=== PATIENT | male | born 1955 | race Hispanic/Latino ===

== ENCOUNTER 2018-06-23 08:16 | Inpatient (IN) | payer MEDICARE ==
[~2018-06-23] VITALS: Ht 177.8 cm; Wt 99.8 kg
--- OUTSIDE RECORDS SUMMARY | 2018-06-23 08:19 | XMS REPORT ---
Author Author [facility] Address Unknown Phone Unavailable Care Team Providers Care [employer] Import Representative Name Role Phone Unavailable Unavailable Problems This patient has no known problems. Allergies, Adverse Reactions, Alerts This patient has no known allergies or adverse reactions. Medications This patient has no known medications. Encounters Start Date/Time End Date/Time Encounter Type Admission Type Attending [facility] Facility Care Department Encounter ID 2018-08-05 00:00:00 2018-08-05 00:00:00 Outpatient [facility] [id number] 2018-06-07 00:00:00 2018-06-07 00:00:00 Outpatient [facility] [id number] 2018-05-27 00:00:00 2018-05-27 00:00:00 Outpatient [facility] [id number] 2018-05-06 00:00:00 2018-05-06 00:00:00 Outpatient [facility] [id number] 2018-04-29 10:15:40 2018-04-29 10:15:40 Outpatient [facility] [id number] 2018-04-26 13:45:33 2018-04-26 13:45:33 Outpatient [facility] [id number] 2018-04-05 11:55:07 2018-04-05 11:55:07 Outpatient [facility] [id number] 2018-04-05 11:15:06 2018-04-05 11:15:06 Outpatient [facility] [id number] 2018-03-26 14:31:44 2018-03-26 14:31:44 Outpatient [facility] [id number] 2018-03-26 13:37:27 2018-03-26 13:37:27 Outpatient [facility] [id number] 2018-03-25 13:28:59 2018-03-25 13:28:59 Outpatient [facility] [id number] 2018-02-09 00:00:00 2018-02-09 00:00:00 Outpatient [facility] [id number] 2018-02-08 00:00:00 2018-02-08 00:00:00 Outpatient [facility] [id number] 2018-02-08 00:00:00 2018-02-08 00:00:00 Outpatient [facility] [id number] 2018-02-08 00:00:00 2018-02-08 00:00:00 Outpatient [facility] [id number] 2018-02-04 08:25:01 2018-02-04 08:25:01 Outpatient [facility] [id number] 2018-02-04 07:35:32 2018-02-04 07:35:32 Outpatient [facility] [id number] 2018-02-03 00:00:00 2018-02-03 00:00:00 Outpatient [facility] [id number] 2018-01-18 14:05:48 2018-01-18 14:05:48 Outpatient [facility] [id number] 2018-01-18 00:00:00 2018-01-18 00:00:00 Outpatient [facility] [id number] 2018-01-07 09:47:52 2018-01-07 09:47:52 Emergency [facility] [id number] 2018-01-07 09:43:53 2018-01-07 09:43:53 Inpatient [facility] [id number] 2018-01-07 08:37:06 2018-01-07 08:37:06 Outpatient [facility] [id number] 2017-12-28 08:30:45 2017-12-28 08:30:45 Outpatient [facility] [id number] 2017-10-20 00:00:00 2017-10-20 00:00:00 Outpatient [facility] [id number] 2017-09-10 09:15:05 2017-09-10 09:15:05 Outpatient [facility] [id number] 2017-09-10 09:02:42 2017-09-10 09:02:42 Outpatient [facility] [id number] 2017-07-30 00:00:00 2017-07-30 00:00:00 Outpatient [facility] [id number] 2017-07-23 08:54:49 2017-07-23 08:54:49 Outpatient [facility] [id number] 2017-06-11 10:37:22 2017-06-11 10:37:22 Outpatient [facility] [id number] 2017-06-11 09:35:41 2017-06-11 09:35:41 Outpatient [facility] [id number] 2017-06-02 09:52:05 2017-06-02 09:52:05 Outpatient [facility] [id number] 2017-05-13 08:56:56 2017-05-13 08:56:56 Outpatient [facility] [id number] 2017-04-22 00:00:00 2017-04-22 00:00:00 Outpatient [facility] [id number] 2017-03-25 11:17:56 2017-03-25 11:17:56 Outpatient [facility] [id number] 2017-03-10 15:11:08 2017-03-10 15:11:08 Outpatient [facility] [id number] 2017-03-10 14:08:11 2017-03-10 14:08:11 Outpatient [facility] [id number] 2017-03-06 11:39:08 2017-03-06 11:39:08 Outpatient [facility] [id number] 2017-03-05 00:00:00 2017-03-05 00:00:00 Outpatient [facility] [id number] 2017-02-25 00:00:00 2017-02-25 00:00:00 Outpatient [facility] [id number] 2017-02-19 05:31:23 2017-02-19 05:31:23 Outpatient [facility] [id number] 2017-02-19 15:54:12 2017-02-19 00:00:00 Inpatient [facility] [id number] 2017-02-17 23:01:27 2017-02-17 23:01:27 Outpatient [facility] [id number] 2017-02-17 12:57:46 2017-02-17 12:57:46 Emergency [facility] [id number] 2017-02-17 08:39:26 2017-02-17 08:39:26 Emergency [facility] [id number] 2017-02-17 08:20:28 2017-02-17 08:20:28 Inpatient [facility] [id number]
[2018-06-23 08:46] LABS: CLARITY,URINE CLEAR (CLEAR); COLOR,URINE AMBER (YELLOW)
[2018-06-23 08:50] LABS: BILIRUBIN,URINE 2+ (NEGATIVE); KETONES,URINE NEGATIVE (NEGATIVE); LEUKOCYTE ESTERASE ,URINE NEGATIVE (NEGATIVE); NITRITE,URINE NEGATIVE (NEGATIVE); PROTEIN,URINE DIPSTICK TRACE (NEGATIVE); URINE UROBILINOGEN 1 mg/dL (0.2 - 1)
[2018-06-23 09:01] LABS: EPITHELIAL CELLS,URINE RARE /LPF
[2018-06-23 09:02] LABS: CALCIUM OXALATE CRYSTALS,UR MODERATE (FEW)
[2018-06-23] MEDS ORDERED: ONDANSETRON HCL INJ 2MG/ML 2ML 2 MG/ML VIAL IV STA ×2 (09:03→15:34)
[2018-06-23 09:06] LABS: BASOPHILS % 0.7 % (0.0-1.0); EOSINOPHILS # (AUTO) 0.1 (0.0-0.4); EOSINOPHILS % 2.4 % (0.0-6.0); HEMATOCRIT 34.5 % (38.2-49.6); HEMOGLOBIN 11.6 g/dL (14.0-18.0); LYMPHOCYTES # (AUTO) 0.9 (1.0-3.2); LYMPHOCYTES % 22.9 % (18.0-39.1); MEAN CORPUSCULAR HGB CONC 33.6 g/dL (31-35); MEAN CORPUSCULAR VOLUME 107.1 fL (81-99); MONOCYTES # (AUTO) 0.6 (0.2-0.8); MONOCYTES % 13.4 % (4.4-11.3); NEUTROPHILS # (AUTO) 2.5 (2.1-6.9); NEUTROPHILS % 59.9 % (38.7-80.0); PLATELET COUNT 62 x10e3/uL (140-360); RED BLOOD COUNT 3.22 x10e6/uL (4.3-5.7); RED CELL DISTRIBUTION WIDTH 17.6 % (11.7-14.4)
[2018-06-23] MEDS ORDERED: CEFTRIAXONE SOD 1 GM/NS 50 ML 50 ML IV ONE (09:15)
[2018-06-23] MEDS ORDERED: HYDROMORPHONE 2MG/ML 2 MG/ML ML IV ONE ×2 (09:15→15:45)
[2018-06-23 09:16] LABS: INR 1.31; PROTHROMBIN TIME 16.9 seconds (11.9-14.5)
[2018-06-23 09:17] LABS: PARTIAL THROMBOPLASTIN TIME 30.4 seconds (23.8-35.5)
[2018-06-23 09:26] LABS: ALANINE AMINOTRANSFERASE 79 IU/L (0-55); ALBUMIN 2.3 g/dL (3.5-5.0); ALBUMIN/GLOBULIN RATIO 0.5 (0.8-2.0); ALKALINE PHOSPHATASE 128 IU/L (40-150); ANION GAP 10.5 mmol/L (8-16); BLOOD UREA NITROGEN 11 mg/dL (7-26); BUN/CREATININE RATIO 14 (6-25); CALCIUM 8.7 mg/dL (8.4-10.2); CARBON DIOXIDE 26 mmol/L (22-29); CHLORIDE 101 mmol/L (98-107); CREATININE, SERUM 0.79 mg/dL (0.72-1.25); EST GLOMERULAR FILTRATION RATE > 60 ML/MIN (60-); GLUCOSE 202 mg/dL (74-118); POTASSIUM 3.5 mmol/L (3.5-5.1); SODIUM 134 mmol/L (136-145)
[2018-06-23] MEDS ORDERED: CLINDAMYCIN PHOS 900MG/ 50ML 50 ML IV ONE (09:45)
--- NOTE | 2018-06-23 12:20 | NUR ---
Patient resting with no distress noted at this time.
--- NOTE | 2018-06-23 13:21 | Diagnostic Imaging Report ---
Exam: Testicular ultrasound with doppler. Clinical History: Painful swelling of the left scrotum. Findings: Sonographic evaluation of the testicles. Both testes are normal in echogenicity and size without intratesticular mass. The right testicle measures 3.5 x 1.9 x 2.7 cm in the left testicle measures 3.7 x 2.3 x 2.6 cm. Normal Doppler flow is demonstrated in bilateral testicles. There is a large left-sided hydrocele, with mild septation and complexity. No right hydrocele. No evidence of varicocele. The left epididymis appears enlarged, measuring up to 1.7 cm with surrounding hyperemia. There is ill-defined heterogeneous scrotal changes with fluid. No evidence of inguinal hernia. Impression: No sonographic evidence of testicular torsion. Findings of left-sided epididymitis with complex left hydrocele. Surrounding heterogeneous scrotal changes with fluid could represent reactive changes or developing phlegmon. Alternatively, if there is a history of trauma, this could represent hematoma. Suggest correlation with history and follow-up ultrasound to assess for resolution. Signed by: Dr. Chi Horta MD on 06/23/2018 1:39 PM
[2018-06-23] MEDS ORDERED: HYDROMORPHONE 1MG/1ML INJ IV PRN (17:00)
[2018-06-23] MEDS ORDERED: DEXTROSE 50% SYRINGE 50 ML IV PRN (17:00)
[2018-06-23] MEDS ORDERED: ONDANSETRON HCL INJ 2MG/ML 2ML 2 MG/ML VIAL IV PRN (17:00)
[2018-06-23] MEDS: SODIUM CHLORIDE 0.9% 1000ML 1,000 ML IV SCH (17:12)
[2018-06-23] MEDS: CEFEPIME 1GM/NS 0.9% 50 ML 50 ML IV SCH (17:38)
--- NOTE | 2018-06-23 18:37 | NUR ---
Patient arrived to the floor from the ER, he is awake alert and oriented x3. He is not in any distress, oriented him to the room and how to use the call light, explained to call for assistance, he verbalized understanding.
[2018-06-23 18:40] VITALS: BP 125/82
--- NOTE | 2018-06-23 19:45 | NUR ---
Patient received lying in bed. AAO x 4. Admission history and Initial physical assessment completed. Patient had no complaints of pain. No signs of respiratory distress. Patient oriented to room, call light and plan of care. Bed locked and in lowest position. Bed rails up x 2. Patient instructed to call for assistance when needed. Call light within reach.
[2018-06-23 20:00] VITALS: BP 121/69
--- NOTE | 2018-06-23 20:30 | NUR ---
Dr. Dave Matthews notified of "Stat Consult". Will see patient in the morning.
[2018-06-23] MEDS: INSULIN LISPRO 100 UNIT/1 ML 3ML VIAL SQ SCH (21:00)
[2018-06-23] MEDS: HYDROMORPHONE 2MG/ML 2 MG/ML ML IV PRN (21:17)
[2018-06-23] MEDS: CLINDAMYCIN PHOS 900MG/ 50ML 50 ML IV SCH (22:00)
--- NOTE | 2018-06-23 23:00 | NUR ---
Urine specimen sent to lab for analysis.
[2018-06-23] MEDS ORDERED: RIBAVIRIN200 MG PO (23:23)
[2018-06-23] MEDS ORDERED: PROAIR HFA INH8.5 GM (23:23)
[2018-06-23] MEDS ORDERED: LISINOPRIL-HCT1 EACH PO (23:23)
[2018-06-23] MEDS ORDERED: EPCLUSA (23:23)
[2018-06-23] MEDS ORDERED: PROVENTIL HFA6.7 GM (23:23)
[2018-06-24] VITALS (7 sets, daily range): BP systolic 94–122; BP diastolic 58–80
[2018-06-24] MEDS: SODIUM CHLORIDE 0.9% 1000ML 1,000 ML IV SCH ×3 (00:46→11:40)
[2018-06-24] MEDS: CEFEPIME 1GM/NS 0.9% 50 ML 50 ML IV SCH ×2 (05:42→17:38)
[2018-06-24 06:13] LABS: BASOPHILS % 0.8 % (0.0-1.0); EOSINOPHILS # (AUTO) 0.2 (0.0-0.4); EOSINOPHILS % 4.1 % (0.0-6.0); HEMATOCRIT 32.8 % (38.2-49.6); HEMOGLOBIN 10.8 g/dL (14.0-18.0); LYMPHOCYTES # (AUTO) 1.5 (1.0-3.2); LYMPHOCYTES % 28.4 % (18.0-39.1); MEAN CORPUSCULAR HGB CONC 32.9 g/dL (31-35); MEAN CORPUSCULAR VOLUME 109.3 fL (81-99); MONOCYTES # (AUTO) 0.8 (0.2-0.8); MONOCYTES % 15.6 % (4.4-11.3); NEUTROPHILS # (AUTO) 2.6 (2.1-6.9); NEUTROPHILS % 50.7 % (38.7-80.0); PLATELET COUNT 55 x10e3/uL (140-360); RED CELL DISTRIBUTION WIDTH 17.4 % (11.7-14.4)
[2018-06-24 06:33] LABS: ANION GAP 7.8 mmol/L (8-16); CALCIUM 8.1 mg/dL (8.4-10.2); CARBON DIOXIDE 32 mmol/L (22-29); CHLORIDE 98 mmol/L (98-107); CREATININE, SERUM 0.75 mg/dL (0.72-1.25); EST GLOMERULAR FILTRATION RATE > 60 ML/MIN (60-); GLUCOSE 119 mg/dL (74-118); POTASSIUM 3.8 mmol/L (3.5-5.1); SODIUM 134 mmol/L (136-145)
[2018-06-24] MEDS: CLINDAMYCIN PHOS 900MG/ 50ML 50 ML IV SCH ×3 (06:40→22:00)
[2018-06-24] MEDS: HYDROMORPHONE 2MG/ML 2 MG/ML ML IV PRN ×3 (06:41→19:01)
[2018-06-24 06:52] LABS: BLOOD UREA NITROGEN 12 mg/dL (7-26); BUN/CREATININE RATIO 15 (6-25)
[2018-06-24] MEDS: INSULIN LISPRO 100 UNIT/1 ML 3ML VIAL SQ SCH ×4 (07:30→21:15)
--- NOTE | 2018-06-24 10:51 | Diagnostic Imaging Report ---
EXAM: CT ABDOMEN AND PELVIS without IV CONTRAST DATE: 06/24/2018 Time stamp on Exam: 9:31 AM INDICATION: Epididymitis, scrotal pain and renal stones. COMPARISON: Scrotal ultrasound dated 06/23/2018 TECHNIQUE: The abdomen and pelvis were scanned using a multidetector helical scanner. Coronal and sagittal reformations were obtained. Renal stone protocol was utilized. Dose modification was accomplished to maintain the lowest dose possible to the patient. IV Contrast: None Oral Contrast: None Radiation Dose: Total DLP 832.17 mGy*cm Estimated effective dose: DLP x 0.015 x size factor FINDINGS: LOWER THORAX: No consolidations or nodules LIVER: No masses BILIARY: The gallbladder is unremarkable. No ductal dilatation. SPLEEN: No masses PANCREAS: No masses ADRENALS: No nodules KIDNEYS: No hydronephrosis or mass. There are 3 small nonobstructing left renal stones. GI TRACT: No distention, wall thickening or evidence of obstruction. Surgical clips at the GE junction. Diverticulosis without findings of diverticulitis. VESSELS: Vascular calcification. Dense calcified plaque at the origin of the SMA with lesser calcification at the origin of the celiac trunk. Bilateral common iliac artery aneurysmal dilatation with the right side measuring 2.6 and the left side measuring 2.1 cm. PERITONEUM/RETROPERITONEUM: Minimal amount of fluid around the liver represents minimal ascites. LYMPH NODES: Gastrohepatic lymph node measures 11 mm. REPRODUCTIVE ORGANS: Left scrotal hydrocele with inflammatory changes in the left scrotum. BLADDER: Small capacity bladder with some wall thickening. SOFT TISSUES: Small upper abdominal ventral hernia. BONES: Old right sided rib fractures with a surgical wire noted around one of them. Old left-sided rib fractures. Mild degenerative changes of the spine. IMPRESSION: 1. Minimal amount of ascites around the liver. 2. Left scrotal hydrocele with inflammatory changes. 3. Small nonobstructing left renal stones. 4. Aneurysmal dilatation of both common iliac arteries. 5. Diverticulosis without findings of diverticulitis. Signed by: Dr. Dwain Wilson DO on 06/24/2018 10:47 AM
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
--- NOTE | 2018-06-24 13:50 | NUR ---
CASE MANAGEMENT ASSESSMENT Drug Room Operator to bedside to discuss plan of care with patient/family. CM/SW role and care transitions discussed. Anticipated discharge plan discussed along with duration of care. CM/SW discussed patients right to make decisions in care. CM/SW work hours given. Patient lives: alone Admit/Transfer: thru ED Hospital/ER visits since last admit: 0; last hospitalization Dec 2017 at [facility] for COPD exacerbation POA/Emergency contact: friend Jaxon Shannon [phone] Current/Previous Home Health: none PCP/Follow-up Care: Dr. Mariely Sprague - pt stated that this is his new PCP and he will make an appointment when he discharges. CM advised him to follow up within 5-7 days. Current/Previous DME: nebulizer Medications (referring to index hospitalization or the first time you were in the hospital) a. Were changes made in your medications when you were in the hospital on [date of index hospitalization]? n/a b. Did you understand the changes? n/a c. Were you able to obtain your new medications right away? n/a d. Were you able to take your medications like the doctor wanted you to? n/a e. Did the hospital give you an accurate, easy to understand list of medications when you left? n/a Scale of 1-10 how comfortable does patient feel with disease management in outpatient settin Other Services: none Employment Status: retired Areas of Concerns: cellulitis, epididymitis Referral Needs: none Education Needs: medical management IMM/ALFARO given and signed (if applicable): none at this time Goal for discharge: home CM/SW left business card at the bedside with contact information. Name and number was also written on the patients whiteboard. Patient verbalized understanding of discussion. CM will follow-up with ongoing discharge and transition of care needs.
--- NOTE | 2018-06-24 19:26 | NUR ---
Patient received sitting up in bed. AAO x 3. Patient had no c/o pain. No signs of respiratory distress. Fall precautions implemented. Patient instructed to call for assistance when needed. Call light within reach.
[2018-06-25] VITALS (8 sets, daily range): BP systolic 94–124; BP diastolic 56–85
[2018-06-25] MEDS: SODIUM CHLORIDE 0.9% 1000ML 1,000 ML IV SCH ×3 (00:46→16:33)
[2018-06-25] MEDS: CEFEPIME 1GM/NS 0.9% 50 ML 50 ML IV SCH ×2 (04:46→16:33)
[2018-06-25] MEDS: CLINDAMYCIN PHOS 900MG/ 50ML 50 ML IV SCH ×3 (05:44→22:29)
--- NOTE | 2018-06-25 07:00 | NUR ---
RCD PT AT BED PT IS ALERT AND ORIENTED PT RESTING ON BED NO SIGNS OF ANY DISTRESS NOTED IV PATENT BED LOW AND LOCKED CALL LIGHT IN REACH
--- NOTE | 2018-06-25 07:10 | NUR ---
Walking rounds done. Shift report given to oncoming nurse.
[2018-06-25] MEDS: INSULIN LISPRO 100 UNIT/1 ML 3ML VIAL SQ SCH ×4 (07:30→21:00)
--- NOTE | 2018-06-25 09:00 | NUR ---
SCORTUM ELEVATED WITH TOWEL AND APPLIED SCDS
--- NOTE | 2018-06-25 10:00 | NUR ---
PT REFUSED SCDS
--- NOTE | 2018-06-25 18:50 | NUR ---
PT RESTING ON BED BED BED SIDE REPORT GIVEN TO ONCOMING NURSE
--- NOTE | 2018-06-25 19:32 | NUR ---
Patient received taking a walk in hallway. AAO x 4. Patient had no complaints of pain. Respirations even and non-labored. Patient instructed to call for assistance when needed. Call light within reach.
[2018-06-26] VITALS (7 sets, daily range): BP systolic 104–128; BP diastolic 72–83
[2018-06-26] MEDS: CEFEPIME 1GM/NS 0.9% 50 ML 50 ML IV SCH ×2 (05:00→16:50)
[2018-06-26 05:02] LABS: BASOPHILS % 0.8 % (0.0-1.0); EOSINOPHILS # (AUTO) 0.2 (0.0-0.4); EOSINOPHILS % 3.3 % (0.0-6.0); HEMATOCRIT 32.2 % (38.2-49.6); HEMOGLOBIN 10.5 g/dL (14.0-18.0); LYMPHOCYTES # (AUTO) 1.8 (1.0-3.2); LYMPHOCYTES % 36.7 % (18.0-39.1); MEAN CORPUSCULAR HEMOGLOBIN 36.5 pg (28-32); MEAN CORPUSCULAR HGB CONC 32.6 g/dL (31-35); MEAN CORPUSCULAR VOLUME 111.8 fL (81-99); MONOCYTES # (AUTO) 0.8 (0.2-0.8); MONOCYTES % 15.9 % (4.4-11.3); NEUTROPHILS # (AUTO) 2.1 (2.1-6.9); NEUTROPHILS % 42.7 % (38.7-80.0); PLATELET COUNT 54 x10e3/uL (140-360); RED BLOOD COUNT 2.88 x10e6/uL (4.3-5.7)
[2018-06-26 05:27] LABS: ANION GAP 8.8 mmol/L (8-16); BLOOD UREA NITROGEN 10 mg/dL (7-26); BUN/CREATININE RATIO 14 (6-25); CALCIUM 8.2 mg/dL (8.4-10.2); CARBON DIOXIDE 29 mmol/L (22-29); CHLORIDE 99 mmol/L (98-107); CREATININE, SERUM 0.74 mg/dL (0.72-1.25); EST GLOMERULAR FILTRATION RATE > 60 ML/MIN (60-); GLUCOSE 97 mg/dL (74-118); POTASSIUM 3.8 mmol/L (3.5-5.1); SODIUM 133 mmol/L (136-145)
[2018-06-26] MEDS: CLINDAMYCIN PHOS 900MG/ 50ML 50 ML IV SCH ×3 (06:15→21:01)
[2018-06-26] MEDS: INSULIN LISPRO 100 UNIT/1 ML 3ML VIAL SQ SCH ×4 (07:30→21:00)
[2018-06-26] MEDS: HYDROMORPHONE 2MG/ML 2 MG/ML ML IV PRN ×2 (12:21→21:35)
[2018-06-27] VITALS: BP 112/73
[2018-06-27] MEDS: CEFEPIME 1GM/NS 0.9% 50 ML 50 ML IV SCH (04:30)
[2018-06-27] MEDS: CLINDAMYCIN PHOS 900MG/ 50ML 50 ML IV SCH (05:33)
[2018-06-27 05:44] VITALS: BP 100/80
[2018-06-27] MEDS: INSULIN LISPRO 100 UNIT/1 ML 3ML VIAL SQ SCH (07:30)
[2018-06-27 07:43] VITALS: BP 100/80
[2018-06-27 09:00] VITALS: BP 137/85
[2018-06-27 09:15] VITALS: BP 137/85
[2018-06-27] MEDS ORDERED: BACTRIM DS TAB1 EACH PO (10:43)
--- NOTE | 2018-06-27 11:00 | NUR ---
PT WENT HOME IN SAFE CONDITION
--- NOTE | 2018-06-28 01:56 | Discharge Summary ---
PRIMARY CARE PHYSICIAN: Dr. Adam Sprague. SURVEILLANCE SENSOR OFFICER: Alexis Matthews MD FINAL DIAGNOSES: 1. Acute epididymitis with scrotal cellulitis, resolving. 2. Baseline immunosuppressed due to hepatitis C treatment. SUMMARY: A 63-year-old male with hepatitis C, getting hepatitis C treatment. The patient developed scrotal swelling with redness along with acute epididymitis, confirmed on CT scan of the groin area. The patient has no vascular compromise. As a matter of fact, the infection has significantly subsided. No surgical intervention needed. The patient is stable. He will go home today. Follow up outpatient. He will follow up with Dr. Matthews in approximately 1 to 2 weeks. He will take Bactrim DS 1 tablet twice a day for 14 days. The patient is stable to discharge home today. MD BENIGNO Duran/MODL /[id number]
== END 2018-06-27 11:30 | disposition home or self-care (01) | DRG 728 ==
LOC: ER 08:16 → ERHOLD 16:46 → MED/SURG2 18:29
PROVIDERS: ADMIT Internal Medicine; ATTEND Internal Medicine
DX: N45.1 Epididymitis (principal); D69.3 Immune thrombocytopenic purpura; E87.1 Hypo-osmolality and hyponatremia; N49.2 Inflammatory disorders of scrotum; B18.2 Chronic viral hepatitis C; E09.9 Drug or chemical induced diabetes mellitus without complications; T38.0X5A Adverse effect of glucocorticoids and synthetic analogues, initial encounter; J44.9 Chronic obstructive pulmonary disease, unspecified; E83.51 Hypocalcemia; N43.3 Hydrocele, unspecified; D69.6 Thrombocytopenia, unspecified; D72.819 Decreased white blood cell count, unspecified; D64.9 Anemia, unspecified; E66.9 Obesity, unspecified; Z79.52 Long term (current) use of systemic steroids; Z87.891 Personal history of nicotine dependence; Z68.31 Body mass index [BMI] 31.0-31.9, adult
CPT/HCPCS: 36415; 74176; 76870; 80048; 80053; 81001; 82948; 83036; 85025; 85610; 85730; 87086; 93976; 99284; J0692; J0696; J2405; J7030

== ENCOUNTER 2018-08-18 08:58 | Emergency (ER) | payer MEDICARE, OTHER ==
[~2018-08-18] VITALS: Ht 177.8 cm; Wt 98.4 kg
[~2018-08-18 08:58] MED LIST: BACTRIM DS TAB1 EACH PO; EPCLUSA; LISINOPRIL-HCT1 EACH PO; PROAIR HFA INH8.5 GM; PROVENTIL HFA6.7 GM; RIBAVIRIN200 MG PO
[2018-08-18] MEDS ORDERED: MORPHINE SULFATE 5 MG/ML VIAL IV ONE (09:30)
[2018-08-18 09:39] LABS: BASOPHILS # (AUTO) 0.1 (0.0-0.1); BASOPHILS % 1.5 % (0.0-1.0); EOSINOPHILS # (AUTO) 0.3 (0.0-0.4); EOSINOPHILS % 6.2 % (0.0-6.0); HEMATOCRIT 41.4 % (38.2-49.6); LYMPHOCYTES # (AUTO) 1.3 (1.0-3.2); LYMPHOCYTES % 28.3 % (18.0-39.1); MEAN CORPUSCULAR HGB CONC 33.8 g/dL (31-35); MEAN CORPUSCULAR VOLUME 106.4 fL (81-99); MONOCYTES # (AUTO) 0.7 (0.2-0.8); MONOCYTES % 14.6 % (4.4-11.3); NEUTROPHILS # (AUTO) 2.3 (2.1-6.9); NEUTROPHILS % 49.2 % (38.7-80.0); PLATELET COUNT 53 x10e3/uL (140-360); RED BLOOD COUNT 3.89 x10e6/uL (4.3-5.7); RED CELL DISTRIBUTION WIDTH 13.7 % (11.7-14.4)
[2018-08-18 09:40] LABS: BILIRUBIN,URINE SMALL (NEGATIVE); KETONES,URINE NEGATIVE (NEGATIVE); LEUKOCYTE ESTERASE ,URINE NEGATIVE (NEGATIVE); NITRITE,URINE NEGATIVE (NEGATIVE); PROTEIN,URINE DIPSTICK TRACE (NEGATIVE); URINE UROBILINOGEN 1 mg/dL (0.2 - 1)
[2018-08-18 09:41] LABS: CLARITY,URINE CLEAR (CLEAR); COLOR,URINE YELLOW (YELLOW)
[2018-08-18] MEDS ORDERED: MORPHINE SULFATE INJ 4 MG/ML INJ 1ML IV ONE (09:45)
[2018-08-18 09:57] LABS: ALANINE AMINOTRANSFERASE 54 IU/L (0-55); ALBUMIN 2.9 g/dL (3.5-5.0); ALKALINE PHOSPHATASE 101 IU/L (40-150); BLOOD UREA NITROGEN 9 mg/dL (7-26); BUN/CREATININE RATIO 12 (6-25); CALCIUM 8.9 mg/dL (8.4-10.2); CARBON DIOXIDE 27 mmol/L (22-29); CREATININE, SERUM 0.78 mg/dL (0.72-1.25); EST GLOMERULAR FILTRATION RATE > 60 ML/MIN (60-); GLUCOSE 169 mg/dL (74-118)
[2018-08-18 10:03] LABS: BACTERIA,URINE FEW /HPF; EPITHELIAL CELLS,URINE FEW /LPF; RBC,URINE 0-5 /HPF (0-5); WBC,URINE (MAN) 0-5 /HPF (0-5)
[2018-08-18 10:04] LABS: MUCUS,URINE MODERATE (RARE)
[2018-08-18 10:17] LABS: ALBUMIN/GLOBULIN RATIO 0.7 (0.8-2.0); CHLORIDE 100 mmol/L (98-107); SODIUM 134 mmol/L (136-145)
--- NOTE | 2018-08-18 11:30 | NUR ---
REPORT RECEIVED FROM LAURA RUIZ. PT RESTING IN BED, PT BREATHING EVEN/UNLABORED, VOICING CONCERNS WITH PAIN COMING BACK, NAD NOTED.
[2018-08-18] MEDS ORDERED: KETOROLAC TROMETHAMINE 30 MG/ML VIAL IV STA (11:38)
--- NOTE | 2018-08-18 13:28 | Diagnostic Imaging Report ---
EXAMINATION: Scrotal ultrasound CLINICAL INDICATION: Swelling. COMPARISON: Scrotal ultrasound 06/23/2018, CT abdomen and pelvis 06/24/2018. TECHNIQUE: Grayscale and color Doppler evaluation of the scrotum was performed in transverse and longitudinal planes. Testicular blood flow is assessed with Doppler spectral waveform analysis. FINDINGS: The right testicle measures 4.4 x 2.3 x 1.9 cm. There are no masses or calcifications.. Normal arterial and venous blood flow. No hydrocele or varicocele. The right epididymis measures 1.1 x 0.9 x 1.0 cm. No nodules or masses.. No hyperemia. The left testicle measures 3.4 x 2.4 x 2.5 cm. There are no masses or calcifications.. Normal arterial and venous blood flow. There is a left hydrocele again noted. There is complex soft tissue content within the left scrotal sac again noted. The left epididymis measures 1.2 x 0.5 x 1.0 cm (previous 1.7 x 0.9 x 1.6 cm). No hyperemia. The scrotum has a normal appearance, without focal lesions. Impression: 1. Normal blood flow to each testicle with no evidence for torsion. 2. The left epididymis has decreased in size since the previous exam with no current evidence for epididymitis. 3. Again noted is left hydrocele with complex internal content, similar to the previous exam. This may represent phlegmonous change of hydrocele fluid. Less likely, complex soft tissue within the hydrocele may represent bowel or mesenteric fat herniation. Signed by: Dr. Suman Zarate M.D. on 08/18/2018 1:25 PM
[2018-08-18] MEDS ORDERED: LEVAQUIN500 MG PO (13:59)
[2018-08-18] MEDS ORDERED: LASIX40 MG PO (14:07)
[2018-08-18 14:26] VITALS: BP 120/85
== END 2018-08-18 14:28 | disposition home or self-care (01) ==
LOC: ER 08:58
DX: N50.812 Left testicular pain (principal); N50.811 Right testicular pain
CPT/HCPCS: 36415; 76870; 80053; 81001; 85025; 87086; 93976; 99284; J1885; J2270

== ENCOUNTER 2018-09-27 06:35 | Inpatient (IN) | payer MEDICARE, OTHER ==
[~2018-09-27] VITALS: Ht 177.8 cm; Wt 108.9 kg
[~2018-09-27 06:35] MED LIST changes: +LASIX40 MG PO; +LEVAQUIN500 MG PO
[2018-09-27 07:57] LABS: BILIRUBIN,URINE MODERATE (NEGATIVE); CLARITY,URINE CLEAR (CLEAR); COLOR,URINE YELLOW (YELLOW); KETONES,URINE NEGATIVE (NEGATIVE); LEUKOCYTE ESTERASE ,URINE NEGATIVE (NEGATIVE); NITRITE,URINE NEGATIVE (NEGATIVE); PROTEIN,URINE DIPSTICK TRACE (NEGATIVE)
[2018-09-27 08:19] LABS: BACTERIA,URINE MODERATE /HPF; RBC,URINE 0-5 /HPF (0-5); WBC,URINE (MAN) 0-5 /HPF (0-5)
[2018-09-27 08:22] LABS: BASOPHILS # (AUTO) 0.1 (0.0-0.1); BASOPHILS % 1.8 % (0.0-1.0); EOSINOPHILS # (AUTO) 0.1 (0.0-0.4); EOSINOPHILS % 3.1 % (0.0-6.0); HEMATOCRIT 39.7 % (38.2-49.6); HEMOGLOBIN 13.9 g/dL (14.0-18.0); LYMPHOCYTES # (AUTO) 1.2 (1.0-3.2); LYMPHOCYTES % 31.1 % (18.0-39.1); MEAN CORPUSCULAR HEMOGLOBIN 35.4 pg (28-32); MONOCYTES # (AUTO) 0.5 (0.2-0.8); MONOCYTES % 13.7 % (4.4-11.3); NEUTROPHILS # (AUTO) 1.9 (2.1-6.9); NEUTROPHILS % 49.8 % (38.7-80.0); PLATELET COUNT 50 x10e3/uL (140-360); RED BLOOD COUNT 3.93 x10e6/uL (4.3-5.7); RED CELL DISTRIBUTION WIDTH 16.2 % (11.7-14.4)
[2018-09-27 08:29] LABS: INR 1.17; PROTHROMBIN TIME 15.5 seconds (11.9-14.5)
[2018-09-27 08:30] LABS: PARTIAL THROMBOPLASTIN TIME 32.1 seconds (23.8-35.5)
[2018-09-27 08:35] LABS: ALANINE AMINOTRANSFERASE 59 IU/L (0-55); ALBUMIN 2.9 g/dL (3.5-5.0); ALBUMIN/GLOBULIN RATIO 0.6 (0.8-2.0); ALKALINE PHOSPHATASE 139 IU/L (40-150); ANION GAP 12.7 mmol/L (8-16); BLOOD UREA NITROGEN 8 mg/dL (7-26); BUN/CREATININE RATIO 11 (6-25); CALCIUM 8.8 mg/dL (8.4-10.2); CARBON DIOXIDE 31 mmol/L (22-29); CHLORIDE 101 mmol/L (98-107); EST GLOMERULAR FILTRATION RATE > 60 ML/MIN (60-); GLUCOSE 111 mg/dL (74-118); POTASSIUM 3.7 mmol/L (3.5-5.1); SODIUM 141 mmol/L (136-145)
[2018-09-27] MEDS ORDERED: ONDANSETRON HCL INJ 2MG/ML 2ML 2 MG/ML VIAL IV PRN (08:45)
[2018-09-27] MEDS: MORPHINE SULFATE INJ 4 MG/ML INJ 1ML IV PRN ×2 (08:51→19:29)
[2018-09-27] MEDS ORDERED: ONDANSETRON HCL INJ 2MG/ML 2ML 2 MG/ML VIAL ONE (08:51)
[2018-09-27 09:09] LABS: EPITHELIAL CELLS,URINE FEW /LPF
[2018-09-27] MEDS ORDERED: CLINDAMYCIN 600MG / 50ML 50 ML IV ONE (09:30)
[2018-09-27] MEDS ORDERED: SODIUM CHLORIDE 0.9% 50ML 50 ML ONE (11:05)
[2018-09-27] MEDS ORDERED: IOPAMIDOL 370 MG/ML 200 ML INFUS..BTL INJ ONE (11:06)
--- NOTE | 2018-09-27 11:15 | Diagnostic Imaging Report ---
PROCEDURE: CT ABDOMEN AND PELVIS WITH CONTRAST TECHNIQUE: The abdomen and pelvis were scanned utilizing a multidetector helical scanner from the diaphragm to the lesser trochanter after the IV administration of 100 cc Isovue-370. Coronal and sagittal multiplanar reformations were obtained. COMPARISON: 06/24/2018. INDICATIONS: PELVIC AND TESTICLE PAIN/SWELLING, TROUBLE SWALLOWING, abdominal wall cellulitis FINDINGS: LOWER THORAX: Small right pleural effusion with passive atelectasis of the posterior segment of lower lobe. Trace subsegmental atelectasis in the dependent left lower lobe. HEPATOBILIARY: Subtle nodularity of the hepatic contour. Hepatic parenchyma is diffusely hypoattenuating. Calcified granuloma in segment 6. No additional focal hepatic lesion or intrahepatic biliary ductal dilatation. Gallbladder is unremarkable. SPLEEN: The spleen is enlarged, measuring 14 cm in craniocaudal dimension. PANCREAS: No focal masses or ductal dilatation. ADRENALS: No adrenal nodules. KIDNEYS/URETERS: Multiple punctate, nonobstructing left renal calculi are seen to better advantage on comparison noncontrast CT 06/24/2018. No hydronephrosis. Interval migration of a 2-3 mm right renal calculus to the ureterovesical junction as seen on series 2 image 80. No renal mass lesions. PELVIC ORGANS/BLADDER: The urinary bladder is incompletely distended but otherwise unremarkable. PERITONEUM / RETROPERITONEUM: Moderate perihepatic and perisplenic ascites, tracking along the paracolic gutters and into the pelvis, average internal attenuation 0-5 Hounsfield units. No pneumoperitoneum. LYMPH NODES: No pelvic sidewall or retroperitoneal lymphadenopathy. Mildly prominent ketan hepatis lymph nodes. VESSELS: Aneurysmal dilatation of the bilateral common iliac arteries to a diameter of 1.8 cm on the right and 2 cm on the left, unchanged. No abnormal aortic aneurysm. Portal vein, splenic vein, and central superior mesenteric vein are patent. Incidental note of a left-sided inferior vena cava, which crosses midline at the left renal vein confluence. GI TRACT: The large bowel shows no distention or wall thickening. Multiple descending and sigmoid colon diverticula without adjacent inflammatory change. Postsurgical changes of fundoplication. No small bowel dilatation to suggest obstruction. BONES AND SOFT TISSUES: Bilateral hydroceles. Complex ventral abdominal wall hernia is again noted, containing ascitic fluid. Multiple bilateral healed rib fracture deformities, with posttraumatic fusion of the left lateral eighth and ninth ribs and cerclage wire around the posterolateral right ninth rib. Degenerative disc changes and facet arthropathy of the lumbar spine IMPRESSION: Skin thickening and subcutaneous stranding along the lower anterior abdominal wall in keeping with the provided history of abdominal wall cellulitis. No drainable fluid collection. Findings suggest cirrhosis with portal hypertension, evidenced by ascites, right pleural effusion, and splenomegaly (patient reports history of hepatitis C infection). Interval migration of a right ureteral calculus to the ureterovesical junction, though without hydroureteronephrosis or perinephric inflammation. Additional nonobstructing left renal calculi. Large bowel diverticulosis without findings of diverticulitis. Bilateral inguinal hernias contain ascitic fluid. Atherosclerotic vascular disease with aneurysmal dilatation of the bilateral common iliac arteries. Postsurgical change likely related to fundoplication at the gastroesophageal junction. Dictated by: Abdullahi Conroy M.D. on 09/27/2018 at 11:20 Electronically approved by: Abdullahi Conroy M.D. on 09/27/2018 at 11:20
[2018-09-27] MEDS ORDERED: CEFEPIME HCL 1 GM VIAL IV SCH (12:00)
[2018-09-27] MEDS: CEFEPIME 1GM/NS 0.9% 50 ML 50 ML IV SCH (12:02)
[2018-09-27] MEDS ORDERED: VANCOMYCIN 1GM/NS 250 ML 250 ML IV ONE (12:30)
[2018-09-27] MEDS: HYDROCODONE/APAP 5MG-325MG TAB PO PRN (12:45)
[2018-09-27] MEDS ORDERED: SPIRIVA18 MCG INH (12:58)
[2018-09-27 13:38] VITALS: BP 157/87
[2018-09-27 13:46] VITALS: BP 157/87
--- NOTE | 2018-09-27 14:11 | NUR ---
patient received from ER via stretcher. see admit assess. very large ascitic stomach. vancomycin infusing. vitals stable with no distress at this time.
--- NOTE | 2018-09-27 14:45 | NUR ---
consent for paracentesis obtained.
[2018-09-27 15:36] VITALS: BP 155/87
--- NOTE | 2018-09-27 17:40 | Diagnostic Imaging Report ---
PROCEDURE: Ultrasound-guided paracentesis Procedural Personnel Attending physician(s): Alecia Villagomez MD Fellow physician(s): None Resident physician(s): None Advanced practice provider(s): None Pre-procedure diagnosis: Ascites Post-procedure diagnosis: Same Indication: Ascites with pain or pressure symptoms Additional clinical history: None Complications: No immediate complications. IMPRESSION: Ultrasound-guided paracentesis with drainage of 2350 mL of serous fluid. Plan: Resume care by clinical team. PROCEDURE SUMMARY: - Limited abdominal ultrasound - Ultrasound-guided paracentesis - Additional procedure(s): None PROCEDURE DETAILS: Pre-procedure Consent: Informed consent for the procedure including risks, benefits and alternatives was obtained and time-out was performed prior to the procedure. Preparation: The site was prepared and draped using maximal sterile barrier technique including cutaneous antisepsis. Anesthesia/sedation Level of anesthesia/sedation: No sedation Anesthesia/sedation administered by: Not applicable Total intra-service sedation time (minutes): N/A Initial abdominal ultrasound Initial abdominal ultrasound was performed. Findings: Moderate ascites. A safe window for paracentesis was identified. Paracentesis Local anesthesia was administered. The peritoneal cavity was accessed and fluid return confirmed position. Ascites was drained. The catheter was then removed, and a sterile bandage was applied. Paracentesis access technique: Real-time ultrasound guidance Catheter placed: 5F Yueh Post-drainage ultrasound: Small ascites Additional Details Additional description of procedure: None Equipment details: None Specimens removed: Abdominal fluid Estimated blood loss (mL): Less than 10 Standardized report: [email or web address] Attestation Signer name: Alecia Villagomez MD I attest that I was present for the entire procedure. I reviewed the stored images and agree with the report as written. Signed by: Alecia Villagomez MD on 09/27/2018 5:36 PM
[2018-09-27 19:25] VITALS: BP 154/78
[2018-09-27 23:37] VITALS: BP 154/78
[2018-09-28] VITALS (8 sets, daily range): BP systolic 136–154; BP diastolic 78–89
[2018-09-28] MEDS: CEFEPIME 1GM/NS 0.9% 50 ML 50 ML IV SCH ×2 (00:34→11:50)
[2018-09-28] MEDS: MORPHINE SULFATE INJ 4 MG/ML INJ 1ML IV PRN ×3 (03:40→22:09)
[2018-09-28 03:53] LABS: BASOPHILS # (AUTO) 0.1 (0.0-0.1); BASOPHILS % 1.4 % (0.0-1.0); EOSINOPHILS # (AUTO) 0.1 (0.0-0.4); EOSINOPHILS % 3.8 % (0.0-6.0); HEMATOCRIT 36.9 % (38.2-49.6); HEMOGLOBIN 12.8 g/dL (14.0-18.0); LYMPHOCYTES # (AUTO) 1.2 (1.0-3.2); LYMPHOCYTES % 32.2 % (18.0-39.1); MEAN CORPUSCULAR HEMOGLOBIN 35.3 pg (28-32); MEAN CORPUSCULAR HGB CONC 34.7 g/dL (31-35); MEAN CORPUSCULAR VOLUME 101.7 fL (81-99); MONOCYTES # (AUTO) 0.5 (0.2-0.8); MONOCYTES % 12.7 % (4.4-11.3); NEUTROPHILS # (AUTO) 1.8 (2.1-6.9); NEUTROPHILS % 49.6 % (38.7-80.0); RED BLOOD COUNT 3.63 x10e6/uL (4.3-5.7); RED CELL DISTRIBUTION WIDTH 15.9 % (11.7-14.4)
[2018-09-28 04:01] LABS: PLATELET COUNT 33 x10e3/uL (140-360)
[2018-09-28 04:11] LABS: ANION GAP 11.6 mmol/L (8-16); BLOOD UREA NITROGEN 9 mg/dL (7-26); BUN/CREATININE RATIO 15 (6-25); CALCIUM 8.4 mg/dL (8.4-10.2); CARBON DIOXIDE 29 mmol/L (22-29); CHLORIDE 98 mmol/L (98-107); CREATININE, SERUM 0.62 mg/dL (0.72-1.25); EST GLOMERULAR FILTRATION RATE > 60 ML/MIN (60-); GLUCOSE 107 mg/dL (74-118); POTASSIUM 3.6 mmol/L (3.5-5.1); SODIUM 135 mmol/L (136-145)
--- NOTE | 2018-09-28 04:30 | NUR ---
JERICHO LANDRY NOTIFIED OF PLATELET COUNT OF 33. SHE WENT IN THE ROOM AND ASSESSED THE PATIENT. SHE PUT IN ORDERS FOR MULTIPLE LAB TEST THAT NEED TO BE DONE.
[2018-09-28] MEDS ORDERED: ACETAMINOPHEN 325 MG TAB PO PRN (04:45)
[2018-09-28] MEDS ORDERED: HYDRALAZINE HCL 20 MG/ML VIAL IV PRN (04:45)
[2018-09-28 05:50] LABS: BASOPHILS % 1.2 % (0.0-1.0); EOSINOPHILS # (AUTO) 0.1 (0.0-0.4); EOSINOPHILS % 4.2 % (0.0-6.0); HEMATOCRIT 38.1 % (38.2-49.6); HEMOGLOBIN 13.1 g/dL (14.0-18.0); LYMPHOCYTES # (AUTO) 0.9 (1.0-3.2); LYMPHOCYTES % 28.3 % (18.0-39.1); MEAN CORPUSCULAR HGB CONC 34.4 g/dL (31-35); MEAN CORPUSCULAR VOLUME 101.9 fL (81-99); MONOCYTES # (AUTO) 0.4 (0.2-0.8); MONOCYTES % 12.3 % (4.4-11.3); NEUTROPHILS # (AUTO) 1.8 (2.1-6.9); NEUTROPHILS % 53.7 % (38.7-80.0); RED BLOOD COUNT 3.74 x10e6/uL (4.3-5.7); RED CELL DISTRIBUTION WIDTH 15.9 % (11.7-14.4)
[2018-09-28 06:06] LABS: ALANINE AMINOTRANSFERASE 52 IU/L (0-55); ALBUMIN 2.7 g/dL (3.5-5.0); ALBUMIN/GLOBULIN RATIO 0.6 (0.8-2.0); ALKALINE PHOSPHATASE 102 IU/L (40-150); ANION GAP 13.4 mmol/L (8-16); BLOOD UREA NITROGEN 8 mg/dL (7-26); BUN/CREATININE RATIO 12 (6-25); CALCIUM 8.5 mg/dL (8.4-10.2); CARBON DIOXIDE 27 mmol/L (22-29); CHLORIDE 97 mmol/L (98-107); CREATININE, SERUM 0.65 mg/dL (0.72-1.25); EST GLOMERULAR FILTRATION RATE > 60 ML/MIN (60-); GLUCOSE 111 mg/dL (74-118); POTASSIUM 3.4 mmol/L (3.5-5.1); SODIUM 134 mmol/L (136-145)
--- NOTE | 2018-09-28 06:12 | NUR ---
THE PATIENT IS LAYING IN BED WATCHING TV. REPORTS NO DISCOMFORT AT THIS TIME. OXYGEN ON VIA NC @3L. RIGHT IV IS PATENT. HOB ELEVATED, LOW BED, WHEELS LOCKED AND CALL LIGHT WITHIN REACH.
[2018-09-28 06:19] LABS: PLATELET COUNT 33 x10e3/uL (140-360)
[2018-09-28] MEDS: FAMOTIDINE 20 MG TAB PO SCH ×2 (06:57→16:34)
[2018-09-28] MEDS ORDERED: PREDNISONE 20 MG TAB PO SCH (09:00)
[2018-09-28] MEDS: HYDROCODONE/APAP 5MG-325MG TAB PO PRN (09:19)
--- NOTE | 2018-09-28 10:35 | Consultation ---
DATE OF CONSULTATION: 09/28/2018 Thank you, Dr. Okeefe for this consultation. HISTORY OF PRESENT ILLNESS: This is a very pleasant gentleman with a past medical history includes hepatitis C, chronic liver disease, history of chronic ITP diagnosed in 2013 treated with steroids at initial presentation, currently admitted through emergency with abdominal cellulitis. The patient was recently admitted in the hospital with left epididymal orchitis. He was followed by urologist. The patient also had history of diabetes, morbid obesity, and renal stones. The patient had abdominal distention, followed with Interventional Radiology, also received paracentesis, almost 2.5 L were removed. CBC at admission shows hemoglobin was 13 with the platelet count that went to 33. Previous hospital admission platelet count seen in 50 range. Coagulation was mildly impaired. Kidney function was in normal range. PAST MEDICAL HISTORY: Diabetes, morbid obesity, ITP chronic, hepatitis C. ALLERGIES: NKDA. MEDICATIONS: Reviewed. SOCIAL HISTORY: No smoking, alcohol, or drugs at current. Used to drink almost a liter on the weekends. REVIEW OF SYSTEMS: A 12-point review as per the HPI. FAMILY HISTORY: Noncontributory. PHYSICAL EXAMINATION: GENERAL: Alert, awake, communicative. HEENT: Normocephalic, atraumatic. Sclerae pale. Conjunctivae clear. NECK: Supple. CHEST: Decreased breath sounds at bases. ABDOMEN: Soft, distended. EXTREMITIES: No edema. LABS AND IMAGING: Reviewed. ASSESSMENT AND PLAN: The patient with history of multiple medical conditions. I am today following for ITP/chronic liver disease causing thrombocytopenia. The patient's current platelet count went down to 33. No active bleeding noted. The patient does have some bruises on the skin. Possible differential include his chronic ITP. Has a possibility of chronic liver disease causing poor production of thrombopoiesis from liver and increased utilization of platelets from spleen. Recommendation, to start with the low dose of steroid. Monitor platelet count closely. Avoid platelet transfusion. Avoid thrombocytopenic medication. We will monitor the patient closely. Continue remaining care. We will follow the patient. MD COLIN Sanchez/JOLIE /[id number]
--- NOTE | 2018-09-28 13:20 | NUR ---
Visit made by the Spiritual Care Department Pastoral Visitor, Marielos Arechiga. PV provided pastoral presence, prayer, hospitality, and supportive listening. Pastoral Visitor informed pt/family of the scope of [employer] Services and availability. FRANCIE DIALLO Sas Programmer Analyst Spiritual Care Department O: [phone] Pager: [phone] ([phone] number calling from)
--- NOTE | 2018-09-28 14:45 | NUR ---
received pt from [facility], pt came via wheelchair with no s/s of distress.
--- NOTE | 2018-09-28 15:00 | NUR ---
PT WAS SEEN WALKING FROM THE IMCU UNIT TOWARDS MED SURG 1 WHEN HE TRIPPED ON HIS SANDAL AND FELL. FALL WAS WITNESSED BY PRIMARY NURSE. PT WAS NOT SEEN HITTING HEAD, PT FELL ON KNEES. RIGHT KNEE HAS SMALL SKIN TEAR, NO BLEEDING. PT WAS ABLE TO AMBULATE BACK TO ROOM 103. POST FALL VITALS: 97.3 DEGREES F, HR 101, 142/78, RR 19, O2 SAT 99% ON ROOM AIR. PT IS ALERT AND ORIENTED X4, PUPILS ARE EQUAL AND REACTIVE TO LIGHT. PT HAS NO COMPLAINTS OF PAIN. BESIDES SKIN TEAR ON RIGHT KNEE, THERE ARE NO OTHER SIGNS OF INJURY. WILL PAGE DOCTOR TO GIVE UPDATE.
--- NOTE | 2018-09-28 15:12 | NUR ---
patient transferred to floor. all personal belongings gathered. vitals stable with no distress at time of transfer.
--- NOTE | 2018-09-28 15:13 | Consultation ---
DATE OF CONSULTATION: REASON FOR CONSULTATION: UTI, pyelonephritis. HISTORY OF PRESENT ILLNESS: This patient is a very pleasant 63-year-old male with history of renal stone before, history of hypertension, who comes in with suprapubic pain started few days ago, fever, still feverish and chills. The pain was so bad, had to come to the hospital where he was admitted. The patient was started on IV antibiotic. I was asked to see him. He is currently up in a chair, comfortable. He tells me he has not had a kidney stone in few years. The patient has been seen by Urology, I was asked to see him. The patient does have history of hepatitis C, chronic liver disease, history of chronic ITP diagnosed in 2013. He has been on steroid initially, currently comes in with suprapubic pain. The patient has been followed by urologist. He does have history of diabetes mellitus, morbidly obese patient, renal stone. The patient was started on cefepime, prednisone. He received a dose of vancomycin. Infectious Disease was asked to see the patient. The patient is currently lying in bed comfortably. PAST MEDICAL HISTORY: As above. PAST SURGICAL HISTORY: As above. ALLERGIES: NKA. SOCIAL HISTORY: Used to smoke less than a pack a day, but he quit three years ago. No drug abuse or alcohol abuse. FAMILY HISTORY: Hypertension. REVIEW OF SYSTEMS: At the present time HEENT: There is no visual changes or hearing changes. Negative. PULMONARY: Negative GI: There is no nausea, no vomiting, no diarrhea. CARDIAC: There is no arrhythmia. Negative. : Negative. SKIN: There is no other rash. NEURO: No seizure activity. LABORATORY DATA: Reviewed. His white count on admission was 3.86, hemoglobin 13.9, hematocrit of 39, his platelets of 50, it came down to 33 today. Sodium 134, potassium 3.4, creatinine 0.65. His bilirubin was 5, his AST was 136. He had a CT scan of abdomen and pelvis which showed skin thickening and subcutaneous stranding along the lower anterior abdominal wall consistent with abdominal wall cellulitis. Liver cirrhosis, portal hypertension was noted. Large bowel diverticulosis without evidence of diverticulitis. IMPRESSION: 1. Suprapubic pain, abdominal pain, abdominal wall cellulitis of lower part and the patient to have a complicated medical history. 2. Chronic liver cirrhosis. 3. Chronic immune thrombocytopenic purpura. 4. On steroid. 5. Left epididymal orchitis diagnosed recently. 6. Morbidly obese patient. 7. History of diabetes. 8. Renal stone. 9. I would recommend to continue with cefepime. We will add vancomycin. Obtain urine cultures. Obtain blood cultures. Obtain CBC. 10. On physical examination, he did have some suprapubic discomfort, redness and swelling. We will follow with you. MD ANDRZEJ Cross/MODL /[id number]
--- NOTE | 2018-09-28 15:48 | NUR ---
CALLED MYRIAM STEWART AND NOTIFIED ABOUT FALL INCIDENT. NO NEW ORDERS GIVEN.
--- NOTE | 2018-09-28 19:14 | NUR ---
report given to oncoming nurse. end of shift rounds done. pt is alert , no s/s of distress. family is at the bedside.
--- NOTE | 2018-09-28 22:09 | NUR ---
PATIENT C/O PAIN TO THE ABDOMEN WITH PAIN SCORE #8, MEDICATED WITH MORPHINE ORDERED. CALL LIGHT WITHIN EASY REACH, PATIENT HAD USED THE RESTROOM PRIOR TO ADMINISTERING THE PAIN MEDICATION. INSTRUCTED TO CALL FOR ASSISTANCE NEEDED.
[2018-09-29] VITALS (7 sets, daily range): BP systolic 122–145; BP diastolic 79–93
[2018-09-29] MEDS: CEFEPIME 1GM/NS 0.9% 50 ML 50 ML IV SCH ×3 (00:11→23:35)
[2018-09-29] MEDS ORDERED: SODIUM CHLORIDE 0.9% 50ML 50 ML ONE (00:15)
--- NOTE | 2018-09-29 00:20 | NUR ---
IV PUMP BEEPING CONSTANTLY WHILE ANTIBIOTIC INFUSING, IV REMOVED WITH TIP INTACT. IV #20 GAUGE INSERTED TO THE LEFT FOREARM PER STAFF NURSE, PROCEDURE TOLERATED WELL AND IV ANTIBIOTIC INFUSING ORDERED.
--- NOTE | 2018-09-29 01:52 | NUR ---
DR Nicki PLUNKETT SAW AND ASSESSED THE PATIENT, PLAN IS TO SCOPE THE PATIENT ONCE HIS PLATELET LEVEL IS WITHIN THE NORMAL RANGE.
--- NOTE | 2018-09-29 04:05 | NUR ---
PATIENT IS SOUNDLY ASLEEP, HE'S EASY TO AROUSE. NO RESPIRATORY DISTRESS OBSERVED, HE DENIES ABDOMINAL PAIN. CALL LIGHT WITHIN EASY REACH, HE'S INSTRUCTED TO CALL FOR ASSISTANCE NEEDED.
[2018-09-29 04:32] LABS: BASOPHILS % 0.7 % (0.0-1.0); EOSINOPHILS # (AUTO) 0.1 (0.0-0.4); EOSINOPHILS % 3.1 % (0.0-6.0); HEMATOCRIT 36.2 % (38.2-49.6); HEMOGLOBIN 12.5 g/dL (14.0-18.0); LYMPHOCYTES # (AUTO) 1.4 (1.0-3.2); LYMPHOCYTES % 32.3 % (18.0-39.1); MEAN CORPUSCULAR HEMOGLOBIN 35.6 pg (28-32); MEAN CORPUSCULAR HGB CONC 34.5 g/dL (31-35); MEAN CORPUSCULAR VOLUME 103.1 fL (81-99); MONOCYTES # (AUTO) 0.5 (0.2-0.8); MONOCYTES % 11.4 % (4.4-11.3); NEUTROPHILS # (AUTO) 2.3 (2.1-6.9); NEUTROPHILS % 52.3 % (38.7-80.0); RED BLOOD COUNT 3.51 x10e6/uL (4.3-5.7); RED CELL DISTRIBUTION WIDTH 15.4 % (11.7-14.4)
[2018-09-29 04:54] LABS: ALANINE AMINOTRANSFERASE 46 IU/L (0-55); ALBUMIN 2.5 g/dL (3.5-5.0); ALKALINE PHOSPHATASE 102 IU/L (40-150); ANION GAP 10.8 mmol/L (8-16); BLOOD UREA NITROGEN 10 mg/dL (7-26); BUN/CREATININE RATIO 15 (6-25); CALCIUM 8.5 mg/dL (8.4-10.2); CARBON DIOXIDE 30 mmol/L (22-29); CHLORIDE 99 mmol/L (98-107); CREATININE, SERUM 0.67 mg/dL (0.72-1.25); EST GLOMERULAR FILTRATION RATE > 60 ML/MIN (60-); GLUCOSE 93 mg/dL (74-118); MAGNESIUM 1.5 MG/DL (1.3-2.1); POTASSIUM 3.8 mmol/L (3.5-5.1); SODIUM 136 mmol/L (136-145)
[2018-09-29 05:12] LABS: B-TYPE NATRIURETIC PEPTIDE2 276.1 pg/mL (0-100)
[2018-09-29 05:14] LABS: FREE T4 (FREE THYROXINE) 0.78 ng/dL (0.8-1.8); THYROID STIMULATING HORMONE 2.342 uIU/mL (0.350-4.940)
[2018-09-29] MEDS ORDERED: POTASSIUM CHLORIDE 20 MEQ TAB CR PO STA (05:14)
[2018-09-29] MEDS ORDERED: FUROSEMIDE INJ 10 MG/ML 4 ML VIAL IV ONE (05:15)
[2018-09-29] MEDS ORDERED: ALBUTEROL/IPRATROPIUM 3 ML NEB NEB PRN (05:15)
[2018-09-29 05:33] LABS: PLATELET COUNT 28 x10e3/uL (140-360)
--- NOTE | 2018-09-29 05:42 | NUR ---
PLATELET COUNT THIS MORNING 28, NO ACTIVE BLEED OBSERVED. CALL PLACED IN TO TAX TECHNICIAN REGARDING THE LOW COUNT, AWAITING CALL BACK FROM THE DOCTOR FOR ORDERS.
[2018-09-29] MEDS: ALBUTEROL/IPRATROPIUM 3 ML NEB NEB SCH ×3 (07:00→20:05)
[2018-09-29] MEDS: FAMOTIDINE 20 MG TAB PO SCH ×2 (09:07→16:20)
[2018-09-29] MEDS: DEXAMETHASONE SOD PHOS 10 MG/1 ML VIAL IV SCH (10:02)
[2018-09-29] MEDS ORDERED: SODIUM CHLORIDE 0.9% 250ML 250 ML ONE (10:55)
[2018-09-29] MEDS ORDERED: IOPAMIDOL 370 MG/ML 200 ML INFUS..BTL INJ ONE (10:55)
--- NOTE | 2018-09-29 11:38 | Progress Note ---
DATE: SUBJECTIVE: The patient seen and examined today. The patient appeared lethargic and tired. The patient's blood work was reviewed. The patient has worsening thrombocytopenia. Platelet count went down to the 28. The patient was started on prednisone yesterday. No evidence of any active bleeding. No skin lesions. PHYSICAL EXAMINATION: GENERAL: Alert, awake, and communicative. HEENT: Normocephalic and atraumatic. Sclerae pale. Conjunctivae clear. NECK: Supple. CHEST: Decreased breath sounds on the bases. ABDOMEN: Soft. EXTREMITIES: No edema. LABORATORY AND IMAGING DATA: Reviewed. ASSESSMENT AND PLAN: The patient with history of chronic liver disease with portal hypertension, history of immune thrombocytopenia purpura, currently in hospital with worsening abdominal distention. He is status post paracentesis. The patient also had worsening thrombocytopenia, platelet counts are trending downwards. Likely etiology of chronic liver disease causing thrombocytopenia as a possibility of ITP. The patient was started on prednisone 20 mg p.o. daily. The patient's platelet count drops, now recommendations for patient is to start on IV steroids include Decadron 40 mg daily to be given for next three days. We will monitor platelet count. Avoid thrombocytopenia medication. We will monitor the patient closely. We will follow the patient closely. MD COLIN Sanchez/JOLIE /[id number]
--- NOTE | 2018-09-29 16:28 | Diagnostic Imaging Report ---
EXAM: CT Abdomen and Pelvis WITH intravenous contrast - hematuria protocol INDICATION: Hematuria COMPARISON: CT abdomen and pelvis of 09/27/2018 TECHNIQUE: Abdomen and pelvis were scanned utilizing a multidetector helical scanner from the lung base to the pubic symphysis after administration of IV contrast. Coronal and sagittal reformations were obtained. Routine protocol was performed. Scan was performed when during portal venous phase. IV CONTRAST: 100 mL of Isovue-370 ORAL CONTRAST: Water COMPLICATIONS: None RADIATION DOSE: Total DLP: 1616.36 mGy*cm Dose modulation, iterative reconstruction, and/or weight based adjustment of the mA/kV was utilized to reduce the radiation dose to as low as reasonably achievable. FINDINGS: LOWER THORAX: There is a 12 mm pulmonary nodule in the left lower lobe (series 6 image 31). Mild bibasilar dependent subsegmental atelectasis. HEPATOBILIARY: Nodular liver contour compatible with cirrhosis. No focal liver lesions. The gallbladder is decompressed. No biliary ductal dilatation. SPLEEN: No splenomegaly. PANCREAS: No focal masses or ductal dilatation. ADRENALS: No adrenal nodules. KIDNEYS/URETERS: No hydronephrosis or solid mass lesions. In the left kidney, there is a 3 mm anterior upper pole calculus and a 3 mm lower pole calculus. On the right, there is a 5 mm calculus at the ureterovesical junction. On excretory phase delayed images, there is opacification of the entirety of both ureters with the exception of the right proximal ureter. No filling defects to suggest urothelial soft tissue mass. PELVIC ORGANS/BLADDER: No bladder wall thickening or bladder mass. PERITONEUM / RETROPERITONEUM: Small volume ascites, predominantly perihepatic. LYMPH NODES: No lymphadenopathy. VESSELS: Atherosclerotic calcifications involve the abdominal aorta and major branches. GI TRACT: Colonic diverticulosis without CT evidence of diverticulitis. BONES AND SOFT TISSUES: Mild degenerative changes of the visualized spine. No suspicious lytic or blastic lesions. IMPRESSION: No hydronephrosis or solid mass lesions. 5 mm calculus at the right ureterovesical junction. 3 mm nonobstructing left renal calculi. Left lower lobe 12 mm pulmonary nodule. Recommend short interval follow-up chest CT in 3 months versus PET/CT or diagnostic sampling. Cirrhotic liver morphology and small volume ascites. Signed by: Alecia Villagomez MD on 09/29/2018 4:24 PM
--- NOTE | 2018-09-29 19:02 | NUR ---
BEDSIDE SHIFT REPORT PERFORMED, RECEIVED PT LAYING SEMI FOWLERS IN RECLINER, PT IS AAOX3, RR EVEN AND NON-LABORED, ON ROOM AIR. LOWER ABDOMEN NOTED TO BE RED. LEFT PT LAYING SEMI FOWLERS IN RECLINER, CALL LIGHT AND PHONE WITHIN REACH.
--- NOTE | 2018-09-29 19:08 | NUR ---
report given to oncoming nurse for continued care. pt stable.
--- NOTE | 2018-09-29 19:09 | NUR ---
SPOKE WITH ANTONINO BLAIR COVERING FOR MD MILLAN CONCERNING PT REPORTS OF SCRATCHY THROAT. NEW ORDERS RECEIVED.
[2018-09-29] MEDS: CEPACOL SORE THROAT LOZENGES PO PRN (19:35)
[2018-09-30] VITALS (8 sets, daily range): BP systolic 122–158; BP diastolic 75–87
[2018-09-30] MEDS: CEPACOL SORE THROAT LOZENGES PO PRN (00:13)
[2018-09-30] MEDS: ALBUTEROL/IPRATROPIUM 3 ML NEB NEB SCH (01:00)
[2018-09-30 03:40] LABS: BASOPHILS % 0.2 % (0.0-1.0); HEMATOCRIT 36.1 % (38.2-49.6); HEMOGLOBIN 12.6 g/dL (14.0-18.0); LYMPHOCYTES # (AUTO) 0.6 (1.0-3.2); LYMPHOCYTES % 14.5 % (18.0-39.1); MEAN CORPUSCULAR HEMOGLOBIN 35.5 pg (28-32); MEAN CORPUSCULAR HGB CONC 34.9 g/dL (31-35); MEAN CORPUSCULAR VOLUME 101.7 fL (81-99); MONOCYTES # (AUTO) 0.4 (0.2-0.8); MONOCYTES % 10.2 % (4.4-11.3); NEUTROPHILS # (AUTO) 3.2 (2.1-6.9); NEUTROPHILS % 74.9 % (38.7-80.0); RED BLOOD COUNT 3.55 x10e6/uL (4.3-5.7); RED CELL DISTRIBUTION WIDTH 15.1 % (11.7-14.4)
[2018-09-30 03:59] LABS: ANION GAP 10.7 mmol/L (8-16); BLOOD UREA NITROGEN 14 mg/dL (7-26); BUN/CREATININE RATIO 19 (6-25); CALCIUM 8.9 mg/dL (8.4-10.2); CARBON DIOXIDE 28 mmol/L (22-29); CHLORIDE 100 mmol/L (98-107); CREATININE, SERUM 0.72 mg/dL (0.72-1.25); EST GLOMERULAR FILTRATION RATE > 60 ML/MIN (60-); GLUCOSE 115 mg/dL (74-118); PLATELET COUNT 35 x10e3/uL (140-360); POTASSIUM 3.7 mmol/L (3.5-5.1); SODIUM 135 mmol/L (136-145)
--- NOTE | 2018-09-30 05:07 | NUR ---
PAGE PLACED FOR MD KIDD PER FISH BIN TENDER JERICHO LANDRY ORDERS. PT REFUSING CYSTOSCOPY TILL PLT'S ARE ABOVE 50. WAITING FOR MD KIDD TO CALL BACK
[2018-09-30] MEDS ORDERED: BISACODYL 5 MG TAB EC PO ONE (05:15)
[2018-09-30] MEDS: SPIRONOLACTONE 25 MG TAB PO SCH ×2 (05:29→05:35)
--- NOTE | 2018-09-30 06:10 | NUR ---
SPOKE WITH MD Dave BALDWIN CONCERNING PT REFUSING PROCEDURE TILL PLT'S ABOVE 50. NO NEW ORDERS. MD WILL BE HERE SHORTLY TO SEE PT.
--- NOTE | 2018-09-30 06:29 | NUR ---
MD BALDWIN IN TO SEE PATIENT, PT AGREES TO PROCEDURE AT THIS TIME.
--- NOTE | 2018-09-30 06:38 | NUR ---
PT TRANSPORTED TO OR BY STRETCHER. PT IN STABLE CONDITION.
--- NOTE | 2018-09-30 06:54 | NUR ---
PAGE PLACED FOR MD Nicki PLUNKETT CONCERNING LABORATORY QUESTION ABOUT ASCITES FLUID. WAITING FOR CALLBACK.
--- NOTE | 2018-09-30 07:07 | NUR ---
BEDSIDE SHIFT REPORT PERFORMED WITH ONCOMING NURSE. PT CURRENTLY IN OR FOR PROCEDURE
--- NOTE | 2018-09-30 07:10 | NUR ---
pt off unit for procedure.
[2018-09-30] MEDS ORDERED: IOPAMIDOL 610MG/1ML 300 MG/ML VIAL IV ONE (07:29)
[2018-09-30] MEDS ORDERED: B&O 60MG R/S 60 MG SUPP PR ONE (07:29)
[2018-09-30] MEDS ORDERED: ACETAMINOPHEN/CODEINE 300MG - 30MG TAB PO PRN (08:00)
[2018-09-30] MEDS ORDERED: SPIRONOLACTONE 25 MG TAB PO SCH (09:00)
--- NOTE | 2018-09-30 10:11 | NUR ---
ST NOTE: Awaiting GI consult before follow up, pt swallow appears normal at bedside, c/o globus sensation. Handoff to LAURA Olivia
[2018-09-30] MEDS: FAMOTIDINE 20 MG TAB PO SCH ×2 (10:29→16:43)
[2018-09-30] MEDS: PHENAZOPYRIDINE HCL 100 MG TAB PO SCH ×3 (10:29→16:43)
[2018-09-30] MEDS: POLYETHYLENE GLYCOL 3350 17 GM PACK PO SCH ×2 (10:29→16:43)
[2018-09-30] MEDS: DEXAMETHASONE SOD PHOS 10 MG/1 ML VIAL IV SCH (10:29)
[2018-09-30] MEDS: OXYBUTYNIN CHLORIDE 5 MG TAB PO SCH ×2 (10:29→16:43)
--- NOTE | 2018-09-30 11:04 | Progress Note ---
DATE: SUBJECTIVE: The patient seen and examined today. The patient appeared better. Clinical condition is improving. Current platelet counts are trending upward. The patient is started on high-dose of steroids. PHYSICAL EXAMINATION: GENERAL: Alert, awake, communicative. HEENT: Normocephalic, atraumatic. Sclerae pale. Conjunctivae clear. NECK: Supple. CHEST: Decreased breath sounds in the bases. ABDOMEN: Soft. EXTREMITIES: No edema. LABORATORY AND IMAGING DATA: Laboratory and imaging reviewed. ASSESSMENT AND PLAN: The patient with history of multiple medical conditions including chronic liver disease, admitted with ascites requiring paracentesis, cellulitis. Recent CAT scan was consistent with multiple renal calculus and left lower lobe pulmonary nodule. The patient is doing okay and recommendation to continue steroid for next 2 days. Monitor CBC closely. PET scan as outpatient for pulmonary nodule. We will monitor the patient closely. MD COLIN Sanchez/JOLIE /[id number]
[2018-09-30] MEDS ORDERED: FUROSEMIDE INJ 10 MG/ML 4 ML VIAL IV SCH (12:00)
[2018-09-30] MEDS: CEFEPIME 1GM/NS 0.9% 50 ML 50 ML IV SCH ×2 (16:22→23:30)
[2018-09-30] MEDS ORDERED: FENTANYL CITRATE/PF 100MCG/2 ML INJ ONE (18:51)
--- NOTE | 2018-09-30 19:11 | NUR ---
BEDSIDE SHIFT REPORT PERFORMED, RECEIVED PT LAYING SEMI FOWLERS IN bed, PT IS AAOX3, RR EVEN AND NON-LABORED, ON ROOM AIR. LOWER ABDOMEN NOTED TO BE RED. LEFT PT LAYING SEMI FOWLERS IN BED, BED IN LOW LOCKED POSITION, SIDE RAILS UPX2, CALL LIGHT AND PHONE WITHIN REACH.
--- NOTE | 2018-09-30 19:21 | NUR ---
report given to oncoming nurse, for continued care.
[2018-09-30] MEDS ORDERED: LIDOCAINE HCL 2% LOCAL INJ 5 ML SDV VIAL INJ ONE (19:28)
[2018-09-30] MEDS ORDERED: ONDANSETRON HCL INJ 2MG/ML 2ML 2 MG/ML VIAL ONE (19:28)
[2018-09-30] MEDS ORDERED: PROPOFOL IV EMULSION 10 MG/ML 20 ML VIAL ONE (19:28)
[2018-09-30] MEDS ORDERED: SEVOFLURANE INHAL SOLN 250 ML PEN BTL ONE (19:28)
[2018-09-30] MEDS ORDERED: DEXAMETHASONE SOD PHOS INJ 4 MG/ML VIAL ONE (19:28)
[2018-09-30] MEDS ORDERED: DIAZEPAM 5 MG TAB PO SCH (21:00)
[2018-10-01 00:06] VITALS: BP 133/78
[2018-10-01 03:37] LABS: HEMATOCRIT 35.6 % (38.2-49.6); HEMOGLOBIN 12.3 g/dL (14.0-18.0); LYMPHOCYTES # (AUTO) 0.8 (1.0-3.2); LYMPHOCYTES % 11.7 % (18.0-39.1); MEAN CORPUSCULAR HEMOGLOBIN 35.3 pg (28-32); MEAN CORPUSCULAR HGB CONC 34.6 g/dL (31-35); MEAN CORPUSCULAR VOLUME 102.3 fL (81-99); MONOCYTES # (AUTO) 0.7 (0.2-0.8); NEUTROPHILS # (AUTO) 5.1 (2.1-6.9); NEUTROPHILS % 77.7 % (38.7-80.0); RED BLOOD COUNT 3.48 x10e6/uL (4.3-5.7); RED CELL DISTRIBUTION WIDTH 15.7 % (11.7-14.4)
[2018-10-01 03:41] LABS: PLATELET COUNT 42 x10e3/uL (140-360)
[2018-10-01 04:00] VITALS: BP 128/72
[2018-10-01 04:12] LABS: ANION GAP 11.5 mmol/L (8-16); BLOOD UREA NITROGEN 19 mg/dL (7-26); BUN/CREATININE RATIO 24 (6-25); CALCIUM 8.7 mg/dL (8.4-10.2); CARBON DIOXIDE 25 mmol/L (22-29); CHLORIDE 100 mmol/L (98-107); CREATININE, SERUM 0.78 mg/dL (0.72-1.25); EST GLOMERULAR FILTRATION RATE > 60 ML/MIN (60-); GLUCOSE 143 mg/dL (74-118); MAGNESIUM 1.9 MG/DL (1.3-2.1); POTASSIUM 3.5 mmol/L (3.5-5.1); SODIUM 133 mmol/L (136-145)
[2018-10-01] MEDS ORDERED: ALDACTONE25 MG PO (05:02)
[2018-10-01] MEDS ORDERED: TYLENOL # 31 EA PO (05:02)
[2018-10-01] MEDS ORDERED: DITROPAN XL5 MG PO (05:02)
[2018-10-01] MEDS ORDERED: FUROSEMIDE40 MG PO (05:02)
[2018-10-01] MEDS ORDERED: PYRIDIUM100 MG PO (05:02)
--- NOTE | 2018-10-01 07:00 | NUR ---
received am report from RN, morning rounds done. Pt is awake, alert sitting in the bedside chair, no s/s of distress.
--- NOTE | 2018-10-01 08:00 | NUR ---
EDUCATED ABOUT IMM, SIGNED, FILED IN CHART, WITH COPY LEFT WITH FAMILY AT BEDSIDE.
[2018-10-01 08:05] VITALS: BP 137/84
[2018-10-01 08:30] VITALS: BP 137/84
[2018-10-01] MEDS: OXYBUTYNIN CHLORIDE 5 MG TAB PO SCH (08:30)
[2018-10-01] MEDS: FAMOTIDINE 20 MG TAB PO SCH (08:30)
[2018-10-01] MEDS: PHENAZOPYRIDINE HCL 100 MG TAB PO SCH (08:30)
[2018-10-01] MEDS: SPIRONOLACTONE 25 MG TAB PO SCH (08:30)
[2018-10-01] MEDS: POLYETHYLENE GLYCOL 3350 17 GM PACK PO SCH (09:00)
[2018-10-01 11:10] LABS: LYMPHOCYTES % (MANUAL) 13 % (19-48); MONOCYTES % (MANUAL) 5 % (3.4-9.0); NEUTROPHILS % (MANUAL) 82 % (40-74)
[2018-10-01 11:11] LABS: ANISOCYTOSIS MODERATE; PLATELET ESTIMATE MARKEDLY DECREASED; PLATELET MORPHOLOGY COMMENT NORMAL; POIKILOCYTOSIS S; RBC MORPHOLOGY COMMENT ABNORMAL
--- NOTE | 2018-10-01 12:08 | Progress Note ---
DATE: SUBJECTIVE: The patient seen and examined today. The patient appears clinically doing better. PHYSICAL EXAMINATION: GENERAL: Alert, awake, communicative. HEENT: Normocephalic, atraumatic. Sclerae pale. Conjunctivae clear. NECK: Supple. CHEST: Decreased breath sounds on the bases. HEART: S1, S2. Regular rate and rhythm. ABDOMEN: Soft. EXTREMITIES: No edema. LABORATORY AND IMAGING DATA: Labs and imaging reviewed. ASSESSMENT AND PLAN: The patient with history of multiple medical conditions including chronic liver disease, on ITP. The patient is currently on dexamethasone. The patient's platelet count is trending upward. Clinical condition is improving. The patient is scheduled for discharge today. Plan is to switch the prednisone. Follow up with outpatient to taper the medication. Continue remaining care. We will monitor the patient closely. MD COLIN Sanchez/JOLIE /[id number]
--- NOTE | 2018-10-02 09:08 | Discharge Summary ---
ADMISSION DIAGNOSES: Abdominal cellulitis, dysphagia, hepatitis C with treatment completed, idiopathic thrombocytopenic purpura, chronic obstructive pulmonary disease, bilateral renal calculus, and obesity. DISCHARGE DIAGNOSES: Abdominal cellulitis, dysphagia, hepatitis C with treatment completed, idiopathic thrombocytopenic purpura, chronic obstructive pulmonary disease, bilateral renal calculus, obesity, cirrhosis, status post cysto with right stent placement. Rule out bacteremia. HISTORY: The patient has a history of hepatitis C, ITP, COPD, asthma, emphysema, and stroke. SURGICAL HISTORY: Left knee surgery, right shoulder surgery, and abdominal hernia repair. FAMILY HISTORY: The patient's grandpa had cancer. SOCIAL HISTORY: Occasional alcohol use. HOSPITAL COURSE: A 63-year-old male, complains of intermittent sharp pelvic pain that began 10 days ago. He has associated chills and orange urine. He denies fever, dysuria, or urinary frequency. Pain is worse with movement and improved with lying still. On admission, the patient was started on cefepime for possible UTI and for an abdominal cellulitis in the suprapubic area. The patient complained of dysphagia, so Speech Therapy was consulted. The patient passed the swallow evaluation and will follow up with GI for any EGD that is necessary. On admission, the patient had a paracentesis with 2.3 L off. Urology was consulted due to bilateral renal calculus found on the CT. CT of the abdomen and pelvis showed skin thickening and subcutaneous stranding along the lower anterior abdominal wall in keeping with the provided history of abdominal wall cellulitis. No drainable fluid collection. Findings suggest cirrhosis with portal hypertension evidenced by ascites, right pleural effusion, and splenomegaly. Interval migration of the right ureteral calculus to the ureterovesical junction. Additional nonobstructing left renal calculi. Bilateral inguinal hernias contain ascitic fluid. ID was consulted, who continued the cefepime. Repeat CT of the abdomen showed no hydronephrosis or solid mass lesion, 5 mm calculus in the right ureterovesical junction, 3 mm nonobstructing left renal calculi, left lower lobe 12 mm pulmonary nodule. The patient was advised to follow up with repeat CT in 3 months. Cirrhotic liver morphology and small volume ascites. Blood cultures were negative. GI wes HCV RNA, but still pending at time of discharge. The patient underwent a cystoscopy and retrograde pyelogram with right stent placement. He tolerated the procedure well and is feeling much better. The patient will discharge home and follow up with primary care in 1-2 weeks, Urology in 3-4 weeks and will continue to strain his urine at home. He was given a prescription for Keflex per ID. He will also follow up with GI for any EGD and dilation if necessary. He will follow up for repeat CAT scan as well in about 3 months. The patient understands discharge instructions and agrees to plan. Vital signs stable, patient afebrile. Dictated by Augustina Campos NP MD KVNG Tang/JOLIE /[id number]
--- NOTE | 2018-11-06 10:12 | Operative Report ---
DATE OF PROCEDURE: 09/30/2018 SURGEON: Alexis Matthews MD PREOPERATIVE DIAGNOSIS: Right hydronephrosis due to stone. POSTOPERATIVE DIAGNOSIS: Right hydronephrosis due to stone. OPERATIONS PERFORMED: 1. Cystourethroscopy with bilateral ureteral catheterization and retrograde ureteropyelography. 2. Interpretation of retrograde ureteropyelography. 3. Cystourethroscopy with insertion of right indwelling ureteral stent. ANESTHESIA: General. COMPLICATIONS: None. SUMMARY: Please refer to the hospital chart. The patient has right-sided hydroureteronephrosis to the distal right stone. He remained symptomatic. He was brought for stent placement. He is aware of the risks of bleeding, infection, injury to adjacent structures, and need for additional procedures and elected to proceed. OPERATIVE PROCEDURE IN DETAIL: Informed consent was verified as Sam Lau. He was properly identified and taken to the operating room, placed on the cystoscopy table in supine position. Anesthesia was uneventfully begun. The patient was then carefully gently repositioned in dorsal lithotomy position with all pressure points well padded. His genitalia were prepared and draped in usual sterile fashion. The cystoscope sheath with visual obturator in place, it was atraumatically inserted into the patient's urethra. It was guided down the unremarkable distal urethra through a wide caliber, probably not significant bulbourethral stricture and through the prostate bed, which was significant for very mild BPH. We entered the patient's bladder. Panendoscopy revealed grade 1 trabeculations, but no tumors, no stones, or no diverticula. Normally positioned configured ureteral orifices were identified. The ureteral catheter was used to cannulate the left ureter and retrograde ureteropyelogram was performed. It was then inserted into the right ureter and retrograde ureteropyelography was performed. Interpretation of retrograde ureteropyelography contrast was instilled in retrograde fashion bilaterally. Stones were not well visualized superior to prior CT. The distal right ureteral stone was not well seen. There was a hydroureteronephrosis present on the right had side. With cystoscope and fluoroscopic guidance, the right-sided indwelling ureteral stent was then placed. It was coiled in the patient's kidney as well as patient's bladder. The retaining suture was cut short. The patient's bladder was then drained. Cystoscope was withdrawn. A belladonna opium suppositories were placed revealing a 25 g of prostate, and smooth, nonfluctuant without any nodules. The patient was uneventfully reversed from anesthesia and taken to the recovery room in stable condition. There are no complications to the procedure. He tolerated the procedure well. Plans will be to return the patient to the operating room to remove the stent, perform ureteroscopy and hopefully render the patient stent free and stone free on the right side, treat the patient's thrombocytopenia, platelet transfusion may be required at that point. Thank you very much for involving us in care of your patient. MD BRENDAN Martinez/MODL /[id number]
== END 2018-10-01 10:52 | disposition home or self-care (01) | DRG 988 ==
LOC: ER 06:35 → ERHOLD 11:55 → IMCU 13:26 → OBSVTOIN 09-28 08:38 → MED/SURG 09-28 15:11
PROVIDERS: ADMIT Internal Medicine; ATTEND Internal Medicine
PROC: 0W9G30Z Drainage of Peritoneal Cavity with Drainage Device, Percutaneous Approach (ICD-10-PCS; principal; 2018-09-27)
PROC: 0T768DZ Dilation of Right Ureter with Intraluminal Device, Via Natural or Artificial Opening Endoscopic (ICD-10-PCS; 2018-09-30)
PROC: BT1B1ZZ Fluoroscopy of Bladder and Urethra using Low Osmolar Contrast (ICD-10-PCS; 2018-09-30)
DX: L03.311 Cellulitis of abdominal wall (principal); D69.3 Immune thrombocytopenic purpura; N13.2 Hydronephrosis with renal and ureteral calculous obstruction; R18.8 Other ascites; J44.9 Chronic obstructive pulmonary disease, unspecified; Z86.73 Personal history of transient ischemic attack (TIA), and cerebral infarction without residual deficits; Z80.9 Family history of malignant neoplasm, unspecified; R13.10 Dysphagia, unspecified; Z68.34 Body mass index [BMI] 34.0-34.9, adult; E11.9 Type 2 diabetes mellitus without complications; Z87.891 Personal history of nicotine dependence; N45.2 Orchitis; E66.01 Morbid (severe) obesity due to excess calories; Z87.442 Personal history of urinary calculi; R91.8 Other nonspecific abnormal finding of lung field; K40.20 Bilateral inguinal hernia, without obstruction or gangrene, not specified as recurrent; R31.9 Hematuria, unspecified; K70.31 Alcoholic cirrhosis of liver with ascites; B18.2 Chronic viral hepatitis C; F10.10 Alcohol abuse, uncomplicated
CPT/HCPCS: 36415; 49083; 74177; 74178; 74420; 74470; 80048; 80053; 80076; 81001; 82140; 82948; 83036; 83735; 83880; 84439; 84443; 85025; 85610; 85730; 87040; 87521; 93005; 94640; 96367; 96374; 96375; 96376; 99284; C1729; C1758; C2617; G0378; J0692; J1100; J1940; J2001; J2270; J2405; J3010; J3370; J7050; J7512; Q9967

== ENCOUNTER 2018-10-27 09:12 | Observation (INO) | payer MEDICARE, OTHER ==
[~2018-10-27] VITALS: Ht 177.8 cm; Wt 103.9 kg
[~2018-10-27 09:12] MED LIST changes: +ALDACTONE25 MG PO; +DITROPAN XL5 MG PO; +FUROSEMIDE40 MG PO; +PYRIDIUM100 MG PO; +SPIRIVA18 MCG INH; +TYLENOL # 31 EA PO
[2018-10-27] MEDS ORDERED: SODIUM CHLORIDE 0.9% 500ML 500 ML IV ONE (09:30)
[2018-10-27] MEDS ORDERED: PANTOPRAZOLE 40 MG 10ML VIAL IV ONE (10:00)
[2018-10-27 10:11] LABS: BASOPHILS # (AUTO) 0.1 (0.0-0.1); BASOPHILS % 1.1 % (0.0-1.0); EOSINOPHILS # (AUTO) 0.3 (0.0-0.4); EOSINOPHILS % 5.3 % (0.0-6.0); HEMATOCRIT 30.4 % (38.2-49.6); HEMOGLOBIN 10.4 g/dL (14.0-18.0); LYMPHOCYTES # (AUTO) 1.5 (1.0-3.2); LYMPHOCYTES % 32.5 % (18.0-39.1); MEAN CORPUSCULAR HEMOGLOBIN 35.5 pg (28-32); MEAN CORPUSCULAR HGB CONC 34.2 g/dL (31-35); MEAN CORPUSCULAR VOLUME 103.8 fL (81-99); MONOCYTES # (AUTO) 0.7 (0.2-0.8); MONOCYTES % 15.4 % (4.4-11.3); NEUTROPHILS # (AUTO) 2.2 (2.1-6.9); NEUTROPHILS % 45.3 % (38.7-80.0); RED BLOOD COUNT 2.93 x10e6/uL (4.3-5.7); RED CELL DISTRIBUTION WIDTH 15.3 % (11.7-14.4)
--- NOTE | 2018-10-27 10:19 | Diagnostic Imaging Report ---
Exam: Head CT without contrast History: Dizziness, fall, near syncope Comparison studies: None Technique: Axial images were obtained from the skull base to the vertex. Coronal and sagittal images reconstructed from the axial data. Dose modulation, iterative reconstruction, and/or weight based adjustment of the mA/kV was utilized to reduce the radiation dose to as low as reasonably achievable. Radiation dose: Total DLP: 832 mGy*cm. Estimated effective dose: DLP x 0.015 Intravenous contrast: None Findings: Scalp: No abnormalities. Bones: No fractures, blastic or lytic lesions. Brain sulci: Mild to moderately prominent prominent. Ventricles: Mild compensatory dilatation. No hydrocephalus. Extra-axial spaces: No masses, no fluid collection. Parenchyma: No abnormal densities. No masses, acute hemorrhage, acute or chronic vascular insults. Sellar/suprasellar region: No abnormalities. Craniocervical junction: Patent foramen magnum. No Chiari one malformation. Included paranasal sinuses: Nonspecific mucosal thickening in the bilateral ethmoid air cells (left greater than right). Incidental findings: Calcified atherosclerosis in the right paraophthalmic ICA segment. IMPRESSION: 1. No acute intracranial abnormalities. 2. Mild to moderate generalized parenchymal volume loss. Signed by: Dr. Abdullahi Segura M.D. on 10/27/2018 10:15 AM
[2018-10-27 10:20] LABS: PLATELET COUNT 45 x10e3/uL (140-360)
[2018-10-27 10:21] LABS: INR 1.16; PROTHROMBIN TIME 15.4 seconds (11.9-14.5)
[2018-10-27 10:22] LABS: PARTIAL THROMBOPLASTIN TIME 29.8 seconds (23.8-35.5)
[2018-10-27 10:23] LABS: ALANINE AMINOTRANSFERASE 48 IU/L (0-55); ALBUMIN 2.8 g/dL (3.5-5.0); ALBUMIN/GLOBULIN RATIO 0.8 (0.8-2.0); ALKALINE PHOSPHATASE 89 IU/L (40-150); BLOOD UREA NITROGEN 17 mg/dL (7-26); BUN/CREATININE RATIO 21 (6-25); CARBON DIOXIDE 25 mmol/L (22-29); CHLORIDE 100 mmol/L (98-107); CREATINE KINASE 385 IU/L (30-200); CREATININE, SERUM 0.82 mg/dL (0.72-1.25); EST GLOMERULAR FILTRATION RATE > 60 ML/MIN (60-); GLUCOSE 214 mg/dL (74-118); SODIUM 136 mmol/L (136-145)
--- NOTE | 2018-10-27 10:23 | Diagnostic Imaging Report ---
EXAMINATION: CHEST SINGLE (PORTABLE) INDICATION: Near syncope COMPARISON: None FINDINGS: Exam limited by portable technique, patient body habitus and underpenetration. LINES/TUBES:None LUNGS:The lungs are moderately inflated. No focal consolidation or carmen edema. PLEURA:No pleural effusion or pneumothorax. MEDIASTINUM:The cardiomediastinal silhouette appears normal in size and shape. BONES/SOFT TISSUES:No acute osseous injury. A cerclage wire overlies the right mid chest over the right eighth posterior rib. ABDOMEN:No free air under the diaphragm. IMPRESSION: No focal pneumonia or carmen edema. Signed by: Alecia Villagomez MD on 10/27/2018 10:20 AM
[2018-10-27 10:32] LABS: MAGNESIUM 1.6 MG/DL (1.3-2.1)
[2018-10-27 10:43] LABS: BILIRUBIN,URINE MODERATE (NEGATIVE); CLARITY,URINE CLOUDY (CLEAR); COLOR,URINE ORANGE (YELLOW); KETONES,URINE NEGATIVE (NEGATIVE); LEUKOCYTE ESTERASE ,URINE TRACE (NEGATIVE); NITRITE,URINE NEGATIVE (NEGATIVE); PROTEIN,URINE DIPSTICK 1+ (NEGATIVE); URINE UROBILINOGEN 4 mg/dL (0.2 - 1)
[2018-10-27 10:51] LABS: BACTERIA,URINE MODERATE /HPF; EPITHELIAL CELLS,URINE MODERATE /LPF; RBC,URINE >50 /HPF (0-5)
[2018-10-27] MEDS ORDERED: CEFTRIAXONE SOD 1 GM/NS 50 ML 50 ML IV ONE (11:00)
[2018-10-27] MEDS ORDERED: MECLIZINE HCL 12.5 MG TAB PO ONE (11:00)
[2018-10-27 11:56] LABS: BAND NEUTROPHILS % (MANUAL) 3 %; EOSINOPHILS % (MANUAL) 4 % (0-7); LYMPHOCYTES % (MANUAL) 24 % (19-48); MONOCYTES % (MANUAL) 15 % (3.4-9.0); NEUTROPHILS % (MANUAL) 50 % (40-74)
[2018-10-27 11:57] LABS: PLATELET ESTIMATE MARKEDLY DECREASED; PLATELET MORPHOLOGY COMMENT NORMAL; RBC MORPHOLOGY COMMENT NORMAL
[2018-10-27] MEDS ORDERED: ONDANSETRON HCL INJ 2MG/ML 2ML 2 MG/ML VIAL IV PRN (12:00)
[2018-10-27] MEDS ORDERED: DEXTROSE 50% SYRINGE 50 ML IV PRN (12:00)
[2018-10-27 15:02] VITALS: BP 113/82
[2018-10-27 15:20] VITALS: BP 113/82
[2018-10-27 15:25] VITALS: BP 113/82
[2018-10-27] MEDS: INSULIN LISPRO 100 UNIT/1 ML 3ML VIAL SQ SCH ×2 (17:32→20:50)
[2018-10-27] MEDS: PANTOPRAZOLE 40 MG 10ML VIAL IV SCH (17:35)
[2018-10-27 18:06] LABS: CREATINE KINASE MB 15.6 ng/mL (0-5.0)
[2018-10-27] MEDS ORDERED: ALBUTEROL/IPRATROPIUM 3 ML NEB NEB SCH (18:15)
--- NOTE | 2018-10-27 18:20 | NUR ---
RECEIVED TO RM 113 FROM OBS IN STABLE CONDITION, DENIES PAIN AT THIS TIME, UPDATED ON POC VOICED UNDERSTANDING, ORIENTED TO RM, INSTRUCTED TO CALL NEED, CALL LIGHT IN REACH WILL CONTINUE TO MONITOR
--- NOTE | 2018-10-27 19:19 | NUR ---
REPORT GIVEN TO ONCOMING COUNSEL RN, PT LEFT IN STABLE CONDITION.
--- NOTE | 2018-10-27 19:19 | NUR ---
RECEIVED REPORT, PATIENT STABLE CONDITION. NO NEEDS AT THIS TIME. CALL LIGHT WITHIN REACH.
[2018-10-27 19:49] VITALS: BP 106/70
[2018-10-27] MEDS: CYCLOBENZAPRINE HCL 10 MG TAB PO PRN (20:50)
[2018-10-27 20:53] VITALS: BP 106/70
[2018-10-27] MEDS ORDERED: SODIUM CHLORIDE 0.9% 250ML 250 ML ONE (23:14)
[2018-10-27] MEDS: CEFTRIAXONE SOD 1 GM/NS 50 ML 50 ML IV SCH (23:21)
[2018-10-28] VITALS: BP 126/76
[2018-10-28 03:48] LABS: ALANINE AMINOTRANSFERASE 38 IU/L (0-55); ALBUMIN 2.3 g/dL (3.5-5.0); ALBUMIN/GLOBULIN RATIO 0.8 (0.8-2.0); ALKALINE PHOSPHATASE 81 IU/L (40-150); ANION GAP 11.5 mmol/L (8-16); BLOOD UREA NITROGEN 12 mg/dL (7-26); BUN/CREATININE RATIO 16 (6-25); CALCIUM 8.2 mg/dL (8.4-10.2); CARBON DIOXIDE 24 mmol/L (22-29); CHLORIDE 102 mmol/L (98-107); CREATININE, SERUM 0.73 mg/dL (0.72-1.25); EST GLOMERULAR FILTRATION RATE > 60 ML/MIN (60-); GLUCOSE 134 mg/dL (74-118); POTASSIUM 3.5 mmol/L (3.5-5.1); SODIUM 134 mmol/L (136-145)
[2018-10-28 03:49] LABS: ALBUMIN 2.3 g/dL (3.5-5.0); BILIRUBIN,DIRECT 1.2 mg/dL (0.0-0.5)
[2018-10-28 04:00] LABS: BASOPHILS % 0.7 % (0.0-1.0); EOSINOPHILS # (AUTO) 0.2 (0.0-0.4); EOSINOPHILS % 5.4 % (0.0-6.0); HEMATOCRIT 25.9 % (38.2-49.6); HEMOGLOBIN 8.8 g/dL (14.0-18.0); LYMPHOCYTES # (AUTO) 1.7 (1.0-3.2); LYMPHOCYTES % 39.9 % (18.0-39.1); MEAN CORPUSCULAR HEMOGLOBIN 35.3 pg (28-32); MONOCYTES # (AUTO) 0.7 (0.2-0.8); NEUTROPHILS # (AUTO) 1.6 (2.1-6.9); NEUTROPHILS % 36.8 % (38.7-80.0); RED BLOOD COUNT 2.49 x10e6/uL (4.3-5.7); RED CELL DISTRIBUTION WIDTH 15.1 % (11.7-14.4)
[2018-10-28] MEDS ORDERED: MECLIZINE HCL 12.5 MG TAB PO PRN (04:00)
[2018-10-28 04:02] LABS: PLATELET COUNT 39 x10e3/uL (140-360)
--- NOTE | 2018-10-28 04:02 | NUR ---
RAHAT FROM LAB CALLED TO REPORT LOW PLT COUNT. JERICHO LANDRY LEAD ELECTRICAL CONTROLS ENGINEER AT NURSES DESK AND WAS NOTIFIED OF PLT COUNT.
[2018-10-28] MEDS ORDERED: CYCLOBENZAPRINE10 MG PO (04:08)
[2018-10-28] MEDS ORDERED: Meclizine Hcl PO (04:08)
[2018-10-28 04:10] LABS: CREATINE KINASE MB 13.1 ng/mL (0-5.0); FREE T4 (FREE THYROXINE) 0.85 ng/dL (0.8-1.8); THYROID STIMULATING HORMONE 2.158 uIU/mL (0.350-4.940)
[2018-10-28 04:39] VITALS: BP 106/70
[2018-10-28 05:14] LABS: CHOL/HDL RATIO 6.8 (3.9-4.7)
--- NOTE | 2018-10-28 07:21 | NUR ---
BEDSIDE REPORT GIVEN TO ONCOMING NURSE. PATIENT IN STABLE CONDITION. STORY WRITER JERICHO ROUNDING ON PATIENT. NO NEEDS VOICED.
[2018-10-28] MEDS: INSULIN LISPRO 100 UNIT/1 ML 3ML VIAL SQ SCH ×3 (07:30→16:26)
[2018-10-28 07:48] VITALS: BP 106/61
[2018-10-28] MEDS: PANTOPRAZOLE 40 MG 10ML VIAL IV SCH ×2 (08:20→17:00)
--- NOTE | 2018-10-28 08:47 | NUR ---
Patient alert nad responsive, VSS and no resp distress. Called in consult to Dr. Lazar this morning and states will see patient later today
[2018-10-28] MEDS ORDERED: SPIRONOLACTONE 25 MG TAB PO SCH (09:00)
[2018-10-28] MEDS ORDERED: FUROSEMIDE 40 MG TAB PO SCH (09:00)
[2018-10-28 09:15] VITALS: BP 106/61
--- NOTE | 2018-10-28 10:43 | NUR ---
Patient OOB and ambulated with PT, modified independence per physical therapist. Will monitor.
[2018-10-28] MEDS: CEFTRIAXONE SOD 1 GM/NS 50 ML 50 ML IV SCH (11:00)
[2018-10-28 11:29] LABS: CREATINE KINASE MB 13.4 ng/mL (0-5.0)
[2018-10-28 12:18] VITALS: BP 104/61
--- NOTE | 2018-10-28 13:07 | Diagnostic Imaging Report ---
Exam: Brain MRI without IV contrast History: Dizziness, fall Comparison studies: Head CT 10/27/2018 Technique: Sagittal and axial T2 FS, axial DWI, axial T2*GRE, axial T1 FLAIR and axial coronal T2 FLAIR. Intravenous contrast: None Findings: Scalp: Normal in signal. No masses. Bone marrow: Normal in signal intensity. Brain sulci: Mild to moderately prominent. Ventricles: Mild compensatory dilatation. No hydrocephalus. Extra axial spaces: No mass, no fluid collection. Parenchyma: No mass, hemorrhage or acute ischemia. Small chronic juxtacortical insult with encephalomalacia and gliosis along the left precentral gyrus (medial to the hand knob). A few small T2 FLAIR hyperintense foci in the supratentorial white matter are nonspecific but most compatible with chronic microvascular ischemic changes. Suprasellar region: No abnormalities. Craniocervical junction: Patent foramen magnum. No Chiari malformation. Vessels: Normal flow-voids in the arteries and sinuses. Incidental findings: Nonspecific inflammatory mucosal thickening in the bilateral ethmoids and in the left maxillary sinus. IMPRESSION: No acute abnormalities. Chronic findings: 1. Mild to moderate generalized parenchymal volume loss. 2. Small chronic medial left precentral infarct. 3. Minimal chronic microvascular ischemic changes. Signed by: Dr. Abdullahi Segura M.D. on 10/28/2018 1:04 PM
--- NOTE | 2018-10-28 15:05 | Diagnostic Imaging Report ---
EXAM: Limited Ultrasound Evaluation of the abdomen INDICATION: ^ASCITES ^[id number] ^[id number] COMPARISON: None TECHNIQUE: Limited Bhatt scale, color Doppler images of the abdomen were obtained. FINDINGS: Limited ultrasound of all 4 quadrants of the abdomen demonstrate minimal right lower quadrant ascites and no ascites elsewhere in the abdomen. IMPRESSION: Minimal right lower quadrant ascites, insufficient for paracentesis. Signed by: Alecia Villagomez MD on 10/28/2018 3:02 PM
[2018-10-28 16:12] VITALS: BP 100/67
[2018-10-28] MEDS: CYCLOBENZAPRINE HCL 10 MG TAB PO PRN (16:14)
--- NOTE | 2018-10-28 17:29 | NUR ---
Augustina came in and orders to discharge patient and to cancel consult to Dr. Lazar. prescription in the chart and IV line removed, cath tip in place and dressing applied. Provided patient with discharge documentation and to f/u with PCP upon discharge.
--- NOTE | 2018-10-29 00:59 | Discharge Summary ---
ADMISSION DIAGNOSES: Dizziness and weakness with fall, cirrhosis, chronic obstructive pulmonary disease without exacerbation, immune thrombocytopenic purpura, obesity. DISCHARGE DIAGNOSES: Dizziness and weakness with fall, cirrhosis, chronic obstructive pulmonary disease without exacerbation, immune thrombocytopenic purpura, obesity, rule out cerebrovascular accident, transient ischemic attack, vertigo. HISTORY: The patient has a history of COPD, asthma, emphysema, CVA, hepatitis C, ITP, and cirrhosis. SURGICAL HISTORY: Left knee surgery, right shoulder surgery, and abdominal hernia repair. FAMILY HISTORY: The patient's grandpa had cancer. SOCIAL HISTORY: Occasional alcohol use. HOSPITAL COURSE: A 63-year-old male complains of weakness and dizziness that resulted in a fall the day before admission. He denies head trauma, loss of consciousness, nausea, vomiting, or ringing ears. Symptoms worsened with changing positions and resolved with lying still. On admission, chest x-raywas negative. CTA of the brain showed no acute abnormality. MRI of the brain showed mild to moderate general parenchymal volume loss, small chronic medial left precentral infarct, minimal chronic microvascular ischemic changes. Carotid Doppler was negative. Echo showed an EF of 50% with no valvular abnormalities or pericardial effusion. Ultrasound of the abdomen showed minimal right lower quadrant ascites, insufficient for paracentesis. Lipid panel was within normal limits except the cholesterol which was 115. The patient will discharge home with new prescriptions for meclizine and Flexeril for hand cramps. He will resume all other home medicines and follow up with primary care in 1 to 2 weeks. The patient understands discharge instructions and agrees to plan. Dictated by Augustina Campos NP MD KVNG Tang/MODL /[id number]
== END 2018-10-28 18:11 | disposition home or self-care (01) ==
LOC: ER 09:12 → ERHOLD 11:46 → IMCU 14:42 → MED/SURG 18:07
PROVIDERS: ADMIT Internal Medicine; ATTEND Internal Medicine
DX: R42 Dizziness and giddiness (principal); R55 Syncope and collapse; K74.4 Secondary biliary cirrhosis; N39.0 Urinary tract infection, site not specified; J44.9 Chronic obstructive pulmonary disease, unspecified; D69.3 Immune thrombocytopenic purpura; E66.9 Obesity, unspecified; Z91.81 History of falling; R53.1 Weakness; Z68.32 Body mass index [BMI] 32.0-32.9, adult
CPT/HCPCS: 36415 ×2; 70450; 70551; 71045; 76705; 80053 ×2; 80061; 80076; 81001; 82550 ×2; 82553 ×2; 82948 ×2; 83036; 83605; 83735; 83880; 84439; 84443; 84484 ×2; 85025 ×2; 85610; 85730; 86850; 86900; 87040; 87086; 93005; 93306; 93880; 97139; 97161; 99284; C9113 ×2; G0378 ×2; J0696 ×2; J7040; J7050; J8597

== ENCOUNTER → 2018-11-15 | Outpatient (CLI) | payer MEDICARE, OTHER ==
[~2018-11-15] MED LIST changes: +CYCLOBENZAPRINE10 MG PO; +Meclizine Hcl PO
--- NOTE | 2018-11-15 13:02 | Diagnostic Imaging Report ---
Exam: KUB Clinical history: Renal calculus Findings: Retained feces are noted in the colon obscuring the renal shadow. A right internal ureteral stent is noted in its expected location. No gross evidence of nephrolithiasis is noted. There is nonobstructive bowel gas pattern. The regional osseous structures are unremarkable. Next Impression: 1. Right internal ureteral stent noted. 2. No gross evidence of nephrolithiasis. Signed by: Dr. Keagan Colon MD on 11/15/2018 12:58 PM
--- NOTE | 2018-11-15 15:25 | Diagnostic Imaging Report ---
Scrotal ultrasound Clinical History: Epididymal orchitis Discussion: Sonographic evaluation of the scrotal contents is performed. The testes have homogeneous echotexture, without focal mass. The right testis measures 4.0 x 2.0 x 3.1 cm. The left testis measures 3. By 2.1 x 2.9 cm. On color Doppler evaluation, there is symmetric blood flow to both testes. The epididymal heads have normal size and appearance. The right epididymal head measures 1.4 x 0.9 x 1.1 cm. The left epididymal head measures 1.1 x 1.1 x 0.8 cm. In the left scrotum, a 5.7 x 2.6 x 3.7 cm anechoic structure is noted with small amount of internal debris. This may represent a hydrocele. Impression: 1. No evidence of asymmetry increase in blood flow to suggest epididymoorchitis. 2. Left hydrocele. Signed by: Dr. Keagan Colon MD on 11/15/2018 3:22 PM
== END ==
LOC: US 11:34
PROVIDERS: ATTEND Urology
DX: N20.0 Calculus of kidney (principal); N45.3 Epididymo-orchitis
CPT/HCPCS: 74018; 76870; 93976

== ENCOUNTER 2018-12-15 11:59 | Observation (INO) | payer MEDICARE, OTHER ==
[~2018-12-15] VITALS: Ht 177.8 cm; Wt 102.6 kg
[2018-12-15 12:32] LABS: BASOPHILS # (AUTO) 0.1 (0.0-0.1); BASOPHILS % 1.5 % (0.0-1.0); EOSINOPHILS # (AUTO) 0.1 (0.0-0.4); EOSINOPHILS % 3.8 % (0.0-6.0); HEMATOCRIT 32.6 % (38.2-49.6); HEMOGLOBIN 10.6 g/dL (14.0-18.0); LYMPHOCYTES # (AUTO) 1.2 (1.0-3.2); LYMPHOCYTES % 36.7 % (18.0-39.1); MEAN CORPUSCULAR HEMOGLOBIN 27.5 pg (28-32); MEAN CORPUSCULAR HGB CONC 32.5 g/dL (31-35); MEAN CORPUSCULAR VOLUME 84.5 fL (81-99); MONOCYTES # (AUTO) 0.6 (0.2-0.8); MONOCYTES % 18.9 % (4.4-11.3); NEUTROPHILS # (AUTO) 1.3 (2.1-6.9); NEUTROPHILS % 38.5 % (38.7-80.0); RED BLOOD COUNT 3.86 x10e6/uL (4.3-5.7); RED CELL DISTRIBUTION WIDTH 19.6 % (11.7-14.4)
[2018-12-15 12:42] LABS: INR 1.37; PARTIAL THROMBOPLASTIN TIME 33.7 seconds (23.8-35.5); PROTHROMBIN TIME 17.5 seconds (11.9-14.5)
[2018-12-15 12:44] LABS: PLATELET COUNT 38 x10e3/uL (140-360)
[2018-12-15 12:49] LABS: ALANINE AMINOTRANSFERASE 31 IU/L (0-55); ALBUMIN/GLOBULIN RATIO 0.8 (0.8-2.0); ALKALINE PHOSPHATASE 101 IU/L (40-150); ANION GAP 12.4 mmol/L (8-16); BLOOD UREA NITROGEN 6 mg/dL (7-26); BUN/CREATININE RATIO 9 (6-25); CALCIUM 8.6 mg/dL (8.4-10.2); CARBON DIOXIDE 27 mmol/L (22-29); CHLORIDE 101 mmol/L (98-107); CREATINE KINASE 594 IU/L (30-200); CREATININE, SERUM 0.69 mg/dL (0.72-1.25); EST GLOMERULAR FILTRATION RATE > 60 ML/MIN (60-); GLUCOSE 145 mg/dL (74-118); POTASSIUM 3.4 mmol/L (3.5-5.1); SODIUM 137 mmol/L (136-145)
[2018-12-15 15:10] LABS: BILIRUBIN,URINE NEGATIVE (NEGATIVE); CLARITY,URINE SL CLOUDY (CLEAR); COLOR,URINE YELLOW (YELLOW); KETONES,URINE NEGATIVE (NEGATIVE); LEUKOCYTE ESTERASE ,URINE NEGATIVE (NEGATIVE); NITRITE,URINE NEGATIVE (NEGATIVE); PROTEIN,URINE DIPSTICK TRACE (NEGATIVE); URINE UROBILINOGEN 1 mg/dL (0.2 - 1)
[2018-12-15 15:22] LABS: AMORPHOUS SEDIMENT,URINE FEW (FEW); BACTERIA,URINE RARE /HPF; RBC,URINE 0-5 /HPF (0-5)
[2018-12-15] MEDS ORDERED: ONDANSETRON HCL INJ 2MG/ML 2ML 2 MG/ML VIAL IV PRN (16:15)
--- NOTE | 2018-12-15 16:58 | Diagnostic Imaging Report ---
EXAM: Limited Ultrasound Evaluation of the abdomen INDICATION: Ascites COMPARISON: None TECHNIQUE: Bhatt scale images of the 4 quadrants of the abdomen were obtained. IMPRESSION: Moderate volume ascites. Signed by: Alecia Villagomez MD on 12/15/2018 4:55 PM
--- NOTE | 2018-12-15 17:07 | NUR ---
PER RADIOLOGIST, PT TO HAVE PARACENTESIS TOMORROW. ER MD NOTIFIED AND PRIMARY NURSE.
--- NOTE | 2018-12-15 17:18 | Diagnostic Imaging Report ---
EXAMINATION: CHEST SINGLE (PORTABLE) INDICATION: Shortness of breath COMPARISON: None FINDINGS: LINES/TUBES:EKG leads overlie the chest. Single cerclage wire overlies the right hemithorax. LUNGS:The lungs are moderately inflated. There is perihilar fullness and indistinctness of the pulmonary vasculature. Mild retrocardiac patchy opacity. PLEURA:No pleural effusion or pneumothorax. MEDIASTINUM:The cardiomediastinal silhouette appears normal in size and shape. BONES/SOFT TISSUES:No acute osseous injury. ABDOMEN:No free air under the diaphragm. IMPRESSION: Mild pulmonary edema. Retrocardiac patchy opacity, most likely subsegmental atelectasis. Signed by: Alecia Villagomez MD on 12/15/2018 5:15 PM
[2018-12-15 19:52] VITALS: BP 138/60
[2018-12-15 19:54] VITALS: BP 138/60
[2018-12-15 20:25] VITALS: BP 154/94
[2018-12-16] VITALS (10 sets, daily range): BP systolic 120–152; BP diastolic 66–96
[2018-12-16 05:08] LABS: BASOPHILS # (AUTO) 0.1 (0.0-0.1); BASOPHILS % 1.2 % (0.0-1.0); EOSINOPHILS # (AUTO) 0.3 (0.0-0.4); EOSINOPHILS % 6.5 % (0.0-6.0); HEMATOCRIT 31.5 % (38.2-49.6); HEMOGLOBIN 10.1 g/dL (14.0-18.0); LYMPHOCYTES # (AUTO) 1.7 (1.0-3.2); LYMPHOCYTES % 41.3 % (18.0-39.1); MEAN CORPUSCULAR HEMOGLOBIN 26.9 pg (28-32); MEAN CORPUSCULAR HGB CONC 32.1 g/dL (31-35); MEAN CORPUSCULAR VOLUME 83.8 fL (81-99); MONOCYTES # (AUTO) 0.7 (0.2-0.8); MONOCYTES % 16.2 % (4.4-11.3); NEUTROPHILS # (AUTO) 1.4 (2.1-6.9); NEUTROPHILS % 34.6 % (38.7-80.0); RED BLOOD COUNT 3.76 x10e6/uL (4.3-5.7); RED CELL DISTRIBUTION WIDTH 19.9 % (11.7-14.4)
[2018-12-16 05:13] LABS: INR 1.38; PROTHROMBIN TIME 17.6 seconds (11.9-14.5)
[2018-12-16 05:14] LABS: PARTIAL THROMBOPLASTIN TIME 34.9 seconds (23.8-35.5)
[2018-12-16 05:15] LABS: PLATELET COUNT 33 x10e3/uL (140-360)
[2018-12-16 05:23] LABS: ALANINE AMINOTRANSFERASE 27 IU/L (0-55); ALBUMIN 2.8 g/dL (3.5-5.0); ALBUMIN/GLOBULIN RATIO 0.7 (0.8-2.0); ALKALINE PHOSPHATASE 90 IU/L (40-150); ANION GAP 12.3 mmol/L (8-16); BLOOD UREA NITROGEN 6 mg/dL (7-26); BUN/CREATININE RATIO 9 (6-25); CALCIUM 8.6 mg/dL (8.4-10.2); CARBON DIOXIDE 26 mmol/L (22-29); CHLORIDE 100 mmol/L (98-107); EST GLOMERULAR FILTRATION RATE > 60 ML/MIN (60-); GLUCOSE 121 mg/dL (74-118); POTASSIUM 3.3 mmol/L (3.5-5.1); SODIUM 135 mmol/L (136-145)
[2018-12-16 05:42] LABS: CREATINE KINASE MB 12.4 ng/mL (0-5.0)
[2018-12-16 05:56] LABS: MAGNESIUM 1.5 MG/DL (1.3-2.1); PHOSPHORUS 2.5 MG/DL (2.3-4.7)
--- NOTE | 2018-12-16 07:07 | NUR ---
received am report from nurse and morning rounds done. pt is alert resting in bed, no s/s of distress. call light within reach and instructed pt to call nurse for help. side rails are up
[2018-12-16 07:35] LABS: EOSINOPHILS % (MANUAL) 6 % (0-7); LYMPHOCYTES % (MANUAL) 45 % (19-48); MONOCYTES % (MANUAL) 17 % (3.4-9.0); NEUTROPHILS % (MANUAL) 32 % (40-74); PLATELET ESTIMATE MARKEDLY DECREASED; PLATELET MORPHOLOGY COMMENT FEW LARGE
[2018-12-16 07:36] LABS: RBC MORPHOLOGY COMMENT NORMAL
--- NOTE | 2018-12-16 10:01 | NUR ---
spoke to Augustina Campos NP and notified her of platelet level of 33. no new orders.
[2018-12-16] MEDS ORDERED: ONDANSETRON HCL INJ 2MG/ML 2ML 2 MG/ML VIAL IV PRN (12:00)
[2018-12-16] MEDS ORDERED: ACETAMINOPHEN 325 MG TAB PO PRN (12:00)
[2018-12-16] MEDS ORDERED: CYCLOBENZAPRINE HCL 10 MG TAB PO PRN (12:00)
[2018-12-16] MEDS ORDERED: HYDRALAZINE HCL 20 MG/ML VIAL IV PRN (12:00)
[2018-12-16] MEDS ORDERED: FUROSEMIDE40 MG PO (12:02)
[2018-12-16] MEDS ORDERED: ALDACTONE25 MG PO (12:02)
[2018-12-16] MEDS ORDERED: Meclizine Hcl PO (12:02)
[2018-12-16] MEDS ORDERED: CYCLOBENZAPRINE10 MG PO (12:02)
[2018-12-16] MEDS ORDERED: POTASSIUM CHLORIDE 20 MEQ TAB CR PO ONE (12:30)
--- NOTE | 2018-12-16 12:55 | NUR ---
ST Note: Spoke with LAURA Hermosillo. Pt NPO for procedure. Will return later today time permitting.
[2018-12-16] MEDS ORDERED: POTASSIUM CHLORIDE 20 MEQ TAB CR PO SCH (18:15)
[2018-12-16] MEDS ORDERED: SODIUM CHLORIDE 0.9% 250ML 250 ML ONE (18:30)
--- NOTE | 2018-12-16 19:20 | NUR ---
platelet infusion was started at 1843 and ended and 1913. vital signs are documented. pt had no s/s of reaction.
[2018-12-16] MEDS ORDERED: ZOLPIDEM TARTRATE 5 MG TAB PO ONE (20:00)
[2018-12-17] VITALS (7 sets, daily range): BP systolic 110–151; BP diastolic 64–92
[2018-12-17 06:32] LABS: BASOPHILS # (AUTO) 0.1 (0.0-0.1); BASOPHILS % 1.3 % (0.0-1.0); EOSINOPHILS # (AUTO) 0.3 (0.0-0.4); EOSINOPHILS % 6.4 % (0.0-6.0); HEMATOCRIT 31.5 % (38.2-49.6); HEMOGLOBIN 10.2 g/dL (14.0-18.0); LYMPHOCYTES # (AUTO) 1.7 (1.0-3.2); LYMPHOCYTES % 36.7 % (18.0-39.1); MEAN CORPUSCULAR HEMOGLOBIN 27.3 pg (28-32); MEAN CORPUSCULAR HGB CONC 32.4 g/dL (31-35); MEAN CORPUSCULAR VOLUME 84.2 fL (81-99); MONOCYTES # (AUTO) 0.7 (0.2-0.8); MONOCYTES % 13.8 % (4.4-11.3); NEUTROPHILS % 41.6 % (38.7-80.0); RED BLOOD COUNT 3.74 x10e6/uL (4.3-5.7); RED CELL DISTRIBUTION WIDTH 19.9 % (11.7-14.4)
[2018-12-17 06:41] LABS: PLATELET COUNT 34 x10e3/uL (140-360)
[2018-12-17 06:57] LABS: FERRITIN 96.1 ng/mL (21.81-274.66)
[2018-12-17 07:25] LABS: EOSINOPHILS % (MANUAL) 6 % (0-7); LYMPHOCYTES % (MANUAL) 38 % (19-48); NEUTROPHILS % (MANUAL) 56 % (40-74); PLATELET ESTIMATE MARKEDLY DECREASED; PLATELET MORPHOLOGY COMMENT FEW LARGE; RBC MORPHOLOGY COMMENT NORMAL
--- NOTE | 2018-12-17 08:00 | NUR ---
Platelet 34. Dr. Siegel notified. See orders
[2018-12-17 08:23] LABS: FOLATE 25.7 ng/mL (7.0-15.4)
[2018-12-17] MEDS ORDERED: SPIRONOLACTONE 25 MG TAB PO SCH (09:00)
[2018-12-17] MEDS ORDERED: FUROSEMIDE 40 MG TAB PO SCH ×2 (09:00→16:00)
[2018-12-17] MEDS ORDERED: OXYBUTYNIN CHLORIDE XL 5 MG TAB PO SCH (09:00)
--- NOTE | 2018-12-17 09:01 | NUR ---
ST NOTE: Spoke with LAURA Chavez. Pt NPO for procedure, will return later today time permitting.
[2018-12-17] MEDS ORDERED: SODIUM CHLORIDE 0.9% 250ML 250 ML ONE (13:48)
--- NOTE | 2018-12-17 14:42 | NUR ---
Augustina Campos HIGH MAN aware per IR Ultrasound did not show any fluid in abdomen. Discharge orders received
--- NOTE | 2018-12-17 15:41 | Diagnostic Imaging Report ---
Abdominal ultrasound, limited. History: Evaluate for paracentesis. Comparison: None available. Discussion: Transverse and longitudinal images of the 4 quadrants of the abdomen demonstrating no evidence of free fluid. IMPRESSION: No evidence of ascites on today's exam. Signed by: Delano Florentino on 12/17/2018 3:38 PM
--- NOTE | 2018-12-17 15:54 | NUR ---
Left AC and right FA IV discontinued. No signs of infiltration noted. 2x2 gauze and tape placed. Taken via wheelchair to personal car. Accompanied by brother. AAOX4 to time, person, place, situation. Respirations even and unlabored. Denies pain.Discharge instructions, rx, and, all personal belongings taken with patient.
--- NOTE | 2018-12-17 17:32 | Consultation ---
DATE OF CONSULTATION: 12/17/[address] Okeefe for this consultation. HISTORY OF PRESENT ILLNESS: This is a very pleasant 63-year-old gentleman with a past medical history including chronic liver disease secondary to hepatitis C, history of chronic ITP diagnosed and treated with steroids, history of portal hypertension with abdominal distention. He is currently in the hospital with worsening abdominal distention . Platelet count was 30s at admission. no bruising or ecchymosis. He feels short of breath. PAST MEDICAL HISTORY: Diabetes, morbid obesity, chronic ITP, hepatitis C. ALLERGIES: NKDA. MEDICATIONS: List reviewed. SOCIAL HISTORY: No smoking, alcohol, or drugs. He used to drink almost 1 L on the weekends. REVIEW OF SYSTEMS: A 12-point review as per HPI. PHYSICAL EXAMINATION: GENERAL: Alert, awake, communicative. HEENT: Normocephalic and atraumatic. Sclerae pale. Conjunctivae clear. NECK: Supple. CHEST: Decreased breath sounds on bases. ABDOMEN: Soft. EXTREMITIES: No edema. LABORATORY AND IMAGING DATA: Reviewed. ASSESSMENT AND PLAN: The patient with history of multiple medical conditions. I am going to following them. Thrombocytopenia. The patient has multifactorial etiology including chronic ITP. Thrombopoietin secretion because of chronic liver disease. the patient will be followed as outpatient. . Continue remaining care. We will follow the patient closely. While the patient has borderline anemia, B12, folate, iron levels were normal. MD COLIN Sanchez/JOLIE /[id number]
--- NOTE | 2018-12-18 06:26 | Discharge Summary ---
ADMISSION DIAGNOSES: Ascites secondary to cirrhosis, shortness of breath, dyspnea on exertion secondary to chronic obstructive pulmonary disease, ambulatory dysfunction with history of falls, immune thrombocytopenic purpura, mild hypokalemia. DISCHARGE DIAGNOSES: Ascites secondary to cirrhosis, shortness of breath, dyspnea on exertion secondary to chronic obstructive pulmonary disease, ambulatory dysfunction with history of falls, immune thrombocytopenic purpura, mild hypokalemia. HISTORY: COPD, asthma, emphysema, hep C with treatment completed, cirrhosis with portal hypertension, ITP, CVA, renal calculi, falls. SURGICAL HISTORY: Left knee arthroscopy, right rotator cuff repair, abdominal hernia repair. FAMILY HISTORY: The patient's grandfather had cancer. SOCIAL HISTORY: The patient admits to continuing to drink alcohol about 6 drinks a week. He also smokes half a pack a day for 40 years. HOSPITAL COURSE: A 63-year-old male admitted with complaints of shortness of breath and labored breathing. He states he underwent his first paracentesis in October with 2.5 L removed. About 3 days ago, he started having difficulty walking with more shortness of breath and weight gain of 33 pounds. He ran out of his diuretic about 1 week ago and he does not recall the name. He says he stopped taking all of his medication per nursing report. On admission, chest x-ray showed mild pulmonary edema. Ultrasound of the abdomen showed moderate volume ascites. IR was consulted for paracentesis, but the patient required multiple units of platelets prior to the scheduled paracentesis. After IR saw the ultrasound, they said that it was not enough fluid to tap, so the patient was discharged home with new prescriptions for all of his diuretics. The patient understands discharge instructions and agrees to plan. He was given Dr. Sprague's number to follow up for future paracentesis needs. He was advised again to stop drinking. The patient understands discharge instructions and agrees to plan. Vital signs stable, the patient afebrile. Dictated by Augustina Campos NP MD KVNG Tang/MODLaura /[id number]
== END 2018-12-17 15:54 | disposition home or self-care (01) ==
LOC: ER 11:59 → ERHOLD 16:33 → MED/SURG2 19:42 → UNDODISOB 12-16 18:36
PROVIDERS: ADMIT Internal Medicine; ATTEND Internal Medicine
DX: K70.31 Alcoholic cirrhosis of liver with ascites (principal); J44.1 Chronic obstructive pulmonary disease with (acute) exacerbation; D69.3 Immune thrombocytopenic purpura; E87.6 Hypokalemia; Z86.19 Personal history of other infectious and parasitic diseases; F17.210 Nicotine dependence, cigarettes, uncomplicated; E66.9 Obesity, unspecified; E11.9 Type 2 diabetes mellitus without complications; Z68.32 Body mass index [BMI] 32.0-32.9, adult; K76.6 Portal hypertension; R55 Syncope and collapse; Z91.81 History of falling; F10.10 Alcohol abuse, uncomplicated; Z80.9 Family history of malignant neoplasm, unspecified; Z72.0 Tobacco use
CPT/HCPCS: 36415 ×3; 36430; 71045; 74470; 76705 ×2; 80053 ×2; 81001; 82105; 82140; 82550 ×2; 82553 ×2; 82607; 82728; 82746; 83540; 83735; 84100; 84466; 84484; 85025 ×3; 85045; 85610 ×2; 85730 ×2; 86850; 86900; 87086; 97161; 99284; G0378 ×3; J7050 ×2; P9031 ×2